=== PATIENT | male | born 1975 | race Caucasian/White ===

== ENCOUNTER 2022-12-07 09:41 | Inpatient (IN) ==
--- NOTE | 2022-12-07 12:00 | XRay Report ---
XR chest 1V not portable CLINICAL HISTORY: illness COMPARISON STUDY: Chest radiograph September 18, 2009. FINDINGS: Lung volumes are normal. Lungs are clear. There is no pneumothorax or pleural effusion. Car diac size is normal. Mediastinal contours are normal. There is no evidence for pulmonary edema. IMPRESSION: No acute cardiopulmonary findings. ACT 112: Negative or not required by law. Electronically signed by: Timmy Guerrero M.D. 12/07/2022 11:58 AM
[2022-12-07 12:08] LABS: Basophils # (auto) 0.05 K/uL (0.00-0.20); Basophils % (auto) 0.3 %; Eosinophils # (auto) 0.02 K/uL (0.00-0.50); Eosinophils % (auto) 0.1 %; Hematocrit (blood only) 35.8 % (42.0-52.0); Hemoglobin 12.1 g/dl (14.0-18.0); Immature Granulocytes # (auto) 0.13 K/uL (0.01-0.20); Immature Granulocytes % (auto) 0.8 %; Lymphocytes # (auto) 1.16 K/uL (1.20-3.40); Mean Corpuscular Hemoglobin 28.5 pg (25.0-34.0); Mean Corpuscular Hgb Conc 33.8 g/dL (32.0-36.0); Mean Corpuscular Volume 84.2 fL (80.0-100.0); Mean Platelet Volume 9.3 fL (9.4-12.4); Monocytes # (auto) 0.95 K/uL (0.11-0.59); Monocytes % (auto) 5.7 %; Neutrophils # (auto) 14.28 K/uL (1.40-6.50); Neutrophils % (auto) 86.1 %; Platelet Count 179 K/uL (130-400); RDW Coefficient of Variation 11.9 % (11.5-14.5); RDW Standard Deviation 36.4 fL (36.4-46.3); Red Blood Count 4.25 M/uL (4.70-6.10); White Blood Count 16.59 K/ul (4.8-10.8)
[2022-12-07 12:21] LABS: Albumin Globulin Ratio 0.9 (0.9-2); Albumin Level 3.9 gm/dl (3.4-5.0); BUN Creatinine Ratio 17.6 (10-20); Bilirubin,Total 0.8 mg/dl (0.2-1.0); C Reactive Protein 20.92 mg/dl (0-0.5); Calcium 9.5 mg/dl (8.6-10.3); Creatinine Clr Calc Pharmacy 114.2 ml/min; Est GFR (African American) 114.3 ml/min; Est GFR (Non-African American) 98.6 ml/min; Globulin 4.4 gm/dl (2.5-4.0); Magnesium 1.9 mg/dl (1.7-2.4); Potassium 4.1 mmol/L (3.5-5.1); Total Protein 8.3 gm/dl (6.0-8.3)
[2022-12-07 12:39] LABS: Procalcitonin 0.25 ng/ml (0-0.5)
[2022-12-07 12:44] LABS: Lyme Ab IgG w/WB Rflx Negative (Negative); Lyme Ab IgM w/WB Rflx Negative (Negative)
[2022-12-07 14:18] LABS: Influenza A virus by PCR Negative (Neg); Influenza B virus by PCR Negative (Neg); RSV by PCR Negative (Neg); SARS CoV2 RNA(COVID-19) Ceph NEGATIVE (Negative)
[2022-12-07] MEDS ORDERED: VANCOMYCIN HCL 1,750 MG in SODIUM CHLORIDE 0.9% 500 ML IV ONE (15:08)
[2022-12-07] MEDS ORDERED: VANCOMYCIN CONSULT ACTIVE PRN ×2 (15:08→18:14)
[2022-12-07] MEDS ORDERED: cefTRIAXone SODIUM 2,000 MG/50 ML BAG IV STA (15:08)
--- NOTE | 2022-12-07 15:11 | Emergency Department Note ---
Impression & Plan Fever of unknown origin ED Provider Note NAME: MARÍA JENKINS AGE: 47 SEX: M : 1975 ARRIVES VIA: Walk-In INFORMANT: Patient, ED PROVIDER(S): Kedar Turcios DO CHIEF COMPLAINT: Fever HPI: The patient is a 47-year-old male who presented to the emergency department for an evaluation of fever. The patient has been noticing fever over the course last 2 weeks. The fever is intermittent. He does take medication for arthritis. He denies having any IV drug abuse but he has a history of this 30 years ago. He has not been seen by his family doctor for the symptoms. He has a history of dental caries. He denies having any rashes. He denies having any chest pain or cough. He denies having any dysuria or frequency. He denies h aving any difficulty breathing. ROS: See above HPI for pertinent positives & negatives. A total of 10 systems reviewed and were otherwise negative. PAST MEDICAL HISTORY: See Below PAST SURGICAL HISTORY: See Below FAMILY HISTORY: See Below SOCIAL HISTORY: See Below HOME MEDICATIONS: See Below ALLERGIES: See Below VITALS: See Below PHYSICAL EXAMINATION: GENERAL: Patient is awake alert in no acute distress patient is resting comfortably and showing no signs of anxiety EYES: The conjunctivae are clear. The pupils are round and reactive. EARS, NOSE, MOUTH AND THROAT: The nose is without any evidence of any deformity. Mucous membranes are moist. Multiple dental caries are noted. NECK: The neck is nontender and supple. RESPIRATORY: Normal respiratory effort is noted there is no evidence of wheezing rhonchi or rales CARDIOVASCULAR: Tachycardic and regular heart sounds were noted to auscultation. There is no definite murmur. GASTROINTESTINAL: The abdomen is soft. Abdomen is nontender. BACK: No midline tenderness or or step-off noted range of motion in flexion extension as well as rotation no signs of muscle spasm noted MUSCULOSKELETAL/EXTREMITIES: There is no evidence of gross deformity full range of motion is noted in the hips and shoulders. SKIN: There is no obvious evidence of any rash. Pedal edema was noted bilaterally. Skin was warm and dry. NEUROLOGIC: Patient is awake alert and oriented x3 MEDICAL DECISION MAKING: The patient is a 47-year-old male who presented to the emergency department for fever. The patient's had fever over the course of the last 2 weeks. The patient had no definite source for his infection. I discussed the patient's laboratory and radiographic studies with him. He was treated with IV fluids and IV antibiotics for presumed bacteremia. Given the patient's history this could be an infection with a dental origin. I discussed the patient's laboratory and radiographic studies with the on-call [facility] hospitalist. They have agreed to evaluate the patient in the emergency department for further management and disposition. Triage Nursing notes reviewed. Prior medical records reviewed Vital Signs: reviewed and remarkable for no significant abnormalities Differential diagnosis: Viral syndrome, otitis, pharyngitis, pneumonia, influenza, meningitis, urinary tract infection, sepsis, bacteremia, as well as other pathologies. ER treatment provided: See below Diagnostics interpreted by me: ECG: EKG was obtained in the emergency department. My interpretation is sinus tachycardia at 126 bpm. There is no ectopy. Right bundle branch block pattern was noted. This was compared to a tracing from September 18, 2009. No changes were noted. Cardiac Monitoring: An order was placed for continuous cardiac monitoring. The monitor shows a rate of 78 bpm with sinus rhythm. Laboratory studies: As stated above and show below. Imaging studies: See below. Radiographic imaging was reviewed by myself Consultation(s): I discussed this case with Dr. Kimball who was on-call for the [facility] hospitalist group. Past Med/Surg History Medical History Undescended left testicle Undescended testicle, unspecified Surgical History No significant past surgical history Family History Father Myocardial infarction, Onset Age: 53 Diabetes Denies family history of Ovarian cancer Prostate cancer Breast cancer Colorectal cancer Social History Smoking Status: Current every day smoker Tobacco Type: E-cigarettes / Vaping Age Started Using Tobacco: 14; packs per day: 1; Cigarettes Per Day: 20; Second Hand Exposure: Yes; Do You Dip or Chew Tobacco: No; Hx Alcohol Use: Yes Alcohol type: beer Alcohol Intake Frequency: Monthly or Less Hx Substance Use: No Preferred Language: Sami Communication Ability: Effective Visual Impairment: No Limitations Hearing Ability: Normal Programming Manager Required: No marital status: Single Current Living Situation: Alone current occupational status: employed 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 How many Children do You have: 1 Feels Safe at Home: Yes Childhood Exposure to Second-Hand Smoke: Yes Diet: regular caffeine: Yes during the past year weight has: remained stable Dental Care, Regularly: No Physical Activity Frequency: Does not Exercise Seatbelt Use: always Sunscreen Use: Yes Assistive Devices: Glasses Allergies Allergies Allergy/AdvReac Type Severity Reaction Status Date / Time No Known Allergies Allergy Verified 11/22/22 09:30 Home Meds Home Medications Medication Instructions Recorded Confirmed acetaminophen 500 mg tablet 500 mg PO Q6H PRN Pain 11/16/22 12/07/22 buprenorphine 8 mg-naloxone 2 mg 0.5 tab sublingual AMPM 11/16/22 12/07/22 sublingual tablet Centrum Men 1 tab PO DAILY 12/07/22 12/07/22 Previous Rx's Medication Instructions Recorded meloxicam 15 mg tablet 7.5 mg PO BID PRN pain #30 tabs 11/22/22 Results & Data (ED) Vital Signs Vital Signs - 24 hr 12/07/22 09:44 12/07/22 14:23 12/07/22 14:23 Temperature 37.0 C Temperature Source Temporal Artery Scan Pulse Rate 116 H 83 83 Pulse Rate [Right Finger] Respiratory Rate 20 20 Respiratory Effort / Characteristics Non-Labored Respiratory Depth Normal Blood Pressure 119/71 146/80 H Blood Pressure [Right Arm] Blood Pressure Mean 87 102 Blood Pressure Mean [Right Arm] Pulse Oximetry 96 95 Oxygen Delivery Method Room Air Sepsis Recent Fever Within 48 Hours No Sepsis New/Unexplained Change in Mental Status N/A Sepsis Action Taken by Nursing No Action Required 12/07/22 15:28 12/07/22 15:00 12/07/22 15:30 Temperature Temperature Source Pulse Rate 94 H 94 H Pulse Rate [Right Finger] 91 H Respiratory Rate 12 17 17 Respiratory Effort / Characteristics Non-Labored Spontaneous Respiratory Depth Normal Blood Pressure 147/81 H 122/78 Blood Pressure [Right Arm] 142/71 H Blood Pressure Mean 103 92 Blood Pressure Mean [Right Arm] 94 Pulse Oximetry 99 98 99 Oxygen Delivery Method Room Air Room Air Room Air Sepsis Recent Fever Within 48 Hours Sepsis New/Unexplained Change in Mental Status Sepsis Action Taken by Nursing 12/07/22 16:30 Temperature Temperature Source Pulse Rate 80 Pulse Rate [Right Finger] Respiratory Rate 15 Respiratory Effort / Characteristics Respiratory Depth Blood Pressure 115/82 Blood Pressure [Right Arm] Blood Pressure Mean 93 Blood Pressure Mean [Right Arm] Pulse Oximetry 97 Oxygen Delivery Method Room Air Sepsis Recent Fever Within 48 Hours Sepsis New/Unexplained Change in Mental Status Sepsis Action Taken by Assisted Medications Current Medication List: was personally reviewed by me Laboratory Data Attestation: I reviewed the patient's lab results. 12/07/22 11:35 12/07/22 11:35 Lab Results 12/07/22 12/07/22 12/07/22 Range/Units 11:35 11:35 11:35 WBC 16.59 H (4.8-10.8) K/ul RBC 4.25 L (4.70-6.10) M/uL Hgb 12.1 L (14.0-18.0) g/dl Hct 35.8 L (42.0-52.0) % MCV 84.2 (80.0-100.0) fL MCH 28.5 (25.0-34.0) pg MCHC 33.8 (32.0-36.0) g/dL RDW Std Deviation 36.4 (36.4-46.3) fL RDW Coeff of Diamond 11.9 (11.5-14.5) % Plt Count 179 (130-400) K/uL MPV 9.3 L (9.4-12.4) fL Immature Gran % (Auto) 0.8 % Neut % (Auto) 86.1 % Lymph % (Auto) 7.0 % Lander % (Auto) 5.7 % Eos % (Auto) 0.1 % Baso % (Auto) 0.3 % Neut # (Auto) 14.28 H (1.40-6.50) K/uL Lymph # (Auto) 1.16 L (1.20-3.40) K/uL Lander # (Auto) 0.95 H (0.11-0.59) K/uL Eos # (Auto) 0.02 (0.00-0.50) K/uL Baso # (Auto) 0.05 (0.00-0.20) K/uL Immature Gran # (Auto) 0.13 (0.01-0.20) K/uL ESR (0-15) mm/hr Sodium 127 L (136-145) mmol/L Potassium 4.1 (3.5-5.1) mmol/L Chloride 91 L (98-107) mmol/L Carbon Dioxide 26 (21-32) mmol/L Anion Gap 10 (3-11) BUN 16 (6-23) mg/dl Creatinine 0.91 (0.6-1.4) mg/dl Est Cr Clr Drug Dosing 114.2 ml/min Est GFR ( Amer) 114.3 ml/min Est GFR (Non-Af Amer) 98.6 ml/min BUN/Creatinine Ratio 17.6 (10-20) Glucose 120 H (70-99(Fasting)) mg/dl Lactate (0.4-2.0) mmol/L Calcium 9.5 (8.6-10.3) mg/dl Magnesium 1.9 (1.7-2.4) mg/dl Total Bilirubin 0.8 (0.2-1.0) mg/dl AST 28 (13-39) U/L ALT 28 (7-52) U/L Alkaline Phosphatase 164 H (34-104) U/L C-Reactive Protein 20.92 H (0-0.5) mg/dl Total Protein 8.3 (6.0-8.3) gm/dl Albumin 3.9 (3.4-5.0) gm/dl Globulin 4.4 H (2.5-4.0) gm/dl Albumin/Globulin Ratio 0.9 (0.9-2) Procalcitonin 0.25 (0-0.5) ng/ml Anaplasma Smear Babesia Smear Lyme Disease IgG Ab Negative (Negative) Lyme Disease IgM Ab Negative (Negative) SARS-CoV-2 (PCR) (Negative) Influenza Type A (PCR) (Neg) Influenza Type B (PCR) (Neg) RSV (RT-PCR) (Neg) 12/07/22 12/07/22 12/07/22 Range/Units 11:35 11:35 11:42 WBC (4.8-10.8) K/ul RBC (4.70-6.10) M/uL Hgb (14.0-18.0) g/dl Hct (42.0-52.0) % MCV (80.0-100.0) fL MCH (25.0-34.0) pg MCHC (32.0-36.0) g/dL RDW Std Deviation (36.4-46.3) fL RDW Coeff of Diamond (11.5-14.5) % Plt Count (130-400) K/uL MPV (9.4-12.4) fL Immature Gran % (Auto) % Neut % (Auto) % Lymph % (Auto) % Lander % (Auto) % Eos % (Auto) % Baso % (Auto) % Neut # (Auto) (1.40-6.50) K/uL Lymph # (Auto) (1.20-3.40) K/uL Lander # (Auto) (0.11-0.59) K/uL Eos # (Auto) (0.00-0.50) K/uL Baso # (Auto) (0.00-0.20) K/uL Immature Gran # (Auto) (0.01-0.20) K/uL ESR 91 H (0-15) mm/hr Sodium (136-145) mmol/L Potassium (3.5-5.1) mmol/L Chloride (98-107) mmol/L Carbon Dioxide (21-32) mmol/L Anion Gap (3-11) BUN (6-23) mg/dl Creatinine (0.6-1.4) mg/dl Est Cr Clr Drug Dosing ml/min Est GFR ( Amer) ml/min Est GFR (Non-Af Amer) ml/min BUN/Creatinine Ratio (10-20) Glucose (70-99(Fasting)) mg/dl Lactate 1.7 (0.4-2.0) mmol/L Calcium (8.6-10.3) mg/dl Magnesium (1.7-2.4) mg/dl Total Bilirubin (0.2-1.0) mg/dl AST (13-39) U/L ALT (7-52) U/L Alkaline Phosphatase (34-104) U/L C-Reactive Protein (0-0.5) mg/dl Total Protein (6.0-8.3) gm/dl Albumin (3.4-5.0) gm/dl Globulin (2.5-4.0) gm/dl Albumin/Globulin Ratio (0.9-2) Procalcitonin (0-0.5) ng/ml Anaplasma Smear See Comment Babesia Smear See Comment Lyme Disease IgG Ab (Negative) Lyme Disease IgM Ab (Negative) SARS-CoV-2 (PCR) (Negative) Influenza Type A (PCR) (Neg) Influenza Type B (PCR) (Neg) RSV (RT-PCR) (Neg) 12/07/22 Range/Units 11:58 WBC (4.8-10.8) K/ul RBC (4.70-6.10) M/uL Hgb (14.0-18.0) g/dl Hct (42.0-52.0) % MCV (80.0-100.0) fL MCH (25.0-34.0) pg MCHC (32.0-36.0) g/dL RDW Std Deviation (36.4-46.3) fL RDW Coeff of Diamond (11.5-14.5) % Plt Count (130-400) K/uL MPV (9.4-12.4) fL Immature Gran % (Auto) % Neut % (Auto) % Lymph % (Auto) % Lander % (Auto) % Eos % (Auto) % Baso % (Auto) % Neut # (Auto) (1.40-6.50) K/uL Lymph # (Auto) (1.20-3.40) K/uL Lander # (Auto) (0.11-0.59) K/uL Eos # (Auto) (0.00-0.50) K/uL Baso # (Auto) (0.00-0.20) K/uL Immature Gran # (Auto) (0.01-0.20) K/uL ESR (0-15) mm/hr Sodium (136-145) mmol/L Potassium (3.5-5.1) mmol/L Chloride (98-107) mmol/L Carbon Dioxide (21-32) mmol/L Anion Gap (3-11) BUN (6-23) mg/dl Creatinine (0.6-1.4) mg/dl Est Cr Clr Drug Dosing ml/min Est GFR ( Amer) ml/min Est GFR (Non-Af Amer) ml/min BUN/Creatinine Ratio (10-20) Glucose (70-99(Fasting)) mg/dl Lactate (0.4-2.0) mmol/L Calcium (8.6-10.3) mg/dl Magnesium (1.7-2.4) mg/dl Total Bilirubin (0.2-1.0) mg/dl AST (13-39) U/L ALT (7-52) U/L Alkaline Phosphatase (34-104) U/L C-Reactive Protein (0-0.5) mg/dl Total Protein (6.0-8.3) gm/dl Albumin (3.4-5.0) gm/dl Globulin (2.5-4.0) gm/dl Albumin/Globulin Ratio (0.9-2) Procalcitonin (0-0.5) ng/ml Anaplasma Smear Babesia Smear Lyme Disease IgG Ab (Negative) Lyme Disease IgM Ab (Negative) SARS-CoV-2 (PCR) NEGATIVE (Negative) Influenza Type A (PCR) Negative (Neg) Influenza Type B (PCR) Negative (Neg) RSV (RT-PCR) Negative (Neg) Administered Medications Discontinued Medications Ceftriaxone Sodium (Rocephin) 2,000 mg in 50 mls @ 100 mls/hr IV NOW STA Stop: 12/07/22 15:37 Last Infusion: 12/07/22 15:57 Dose: 0 mls/hr Documented By: Admin: 12/07/22 15:28 Dose: 100 mls/hr Documented By: ASW Vancomycin HCl 1,750 mg/ (Sodium Chloride) 535 mls @ 200 mls/hr IV NOW ONE Stop: 12/07/22 17:48 Last Admin: 12/07/22 15:57 Dose: 200 mls/hr Documented By: ASW Imaging Data Attestation: I personally reviewed and interpreted this imaging study as follows: My Impression: 1 view chest x-ray was obtained in the emergency department. My interpretation is no free air or definite infiltrate, final report below. Radiologist's Impression: Chest X-Ray 12/07/22 09:55 XR chest 1V not portable CLINICAL HISTORY: illness COMPARISON STUDY: Chest radiograph September 18, 2009. FINDINGS: Lung volumes are normal. Lungs are clear. There is no pneumothorax or pleural effusion. Cardiac size is normal. Mediastinal contours are normal. There is no evidence for pulmonary edema. IMPRESSION: No acute cardiopulmonary findings. ACT 112: Negative or not required by law. Electronically signed by: Timmy Guerrero M.D. 12/07/2022 11:58 AM Discharge Plan Visit Data Chief Complaint: Illness Stated Complaint: FEVER,CANT WALK/EAT,WEAKNESS ED Provider: Kedar Turcios Discharge Problem: Fever of unknown origin Patient Disposition: Being Evaluated by Hospitalist Discharge Instructions Interventions: ED Discharge Assessment Last Done: 12/07/22 18:14
--- NOTE | 2022-12-07 15:42 | History & Physical Report ---
Date of Service December 07, 2022 Assessment & Plan (1) Fever: Plan: Fever, leukocytosis, elevated inflammatory markers of unknown origin Patient with 1 month of intermittent fevers and sweats. Has had some intermittent right lumbar pain, right foot pain, and a right hernia all of which feel improved to him at time of admitting assessment. He denies respiratory and GI symptoms Has a history of IV drug abuse in remission for 30 years, following this he did use unprescribed Suboxone and is recently on prescription Suboxone for the last 6 months. Did not use Suboxone via an IV injection route, and affirms that he has not used any recreational IV venipuncture in several decades Some minimal R paraspinal lumbar TTP. Patient has persistent fevers/night sweats, CRP of 20, ESR of 91, and an elevated alk phos all suspicious for occult bony infection in the setting of recreational drug abuse hx. Will obtain MRI- C/T/L spine Patient without jaw swelling or dental pain, if above negative can f/u with CT-face + contrast, clinically no signs of soft tissue infection on exam. BC pending Patient denies tick exposures, initial Lyme and Anaplasma testing is negative. He does not have a transaminitis. No abdominal pain (2) History of intravenous drug abuse: Plan: Suboxone 8 milligram 1/2 tablet a.m./p.m. home dosing continued (3) Pain of right heel: Plan: No pain on admitting exam, no overlying lesions of the heel Plan DVT prophylaxis: Heparin Disposition: Medical/surgical CODE STATUS: Full code Diet: N.p.o. pending MRI results, if no abscesses requiring emergent surgical intervention are identified then can progress to a regular History of Present Illness Primary Care Provider: Kenneth Santiago, III, [employer] Mr. 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 Pt reprots 1 month of fevers, night sweats, and feeling tired. Denies respiratory symptoms, diarrhea/abdominal pain, skin infection, skin lesions. Notes R foot has been achy 'but not too bad. 03/24 currently, can't relaly tell you when it started' Is not able to quantify when foot last felt normal on a days, weeks, months, or years scale and does not have any pain at bedside exam. R groin started to hurt 1 month ago. Initially got a little better, and noted a hernia was found on workup. This has felt 'ok' with no pain at rest and minimal pain when he pressure on it. Pt notes initially thought he had a blood clot but CTA did not show evidence of this. Low back pain after pulling a muscle in low R back 'so painful I can't walk'. This was 2 months ago, and got better but then recurred 1 month ago then went away after a week. Feels 'ok' at rest today and does n ot hurt at time of HPI, Endorses he takes Suboxone 0.5 8mg pill in AM and PM (1 pill, 8mg TDD). Has been on Suboxone for 6 months, previously used street/noneprescription suboxone. Denies IVDU in last 30 years. Denies chest pain/chest pressure. No SoB/dyspnea/cough. No tick bites or rashes. Medical History: Reviewed Medications: Reviewed Surgical History: Reviewed Family history: Reviewed Allergies: Reviewed Social History: Vapes. Would like nicotine patch. Rare social etoh. Denies MM/RM use. Denies recent IVDU. Code Status: Full Allergies Allergy/AdvReac Type Severity Reaction Status Date / Time No Known Allergies Allergy Verified 11/22/22 09:30 Home Medications Medication Instructions Recorded Confirmed Type acetaminophen 500 mg tablet 500 mg PO Q6H PRN Pain 11/16/22 12/07/22 History buprenorphine 8 mg-naloxone 2 mg 0.5 tab sublingual AMPM 11/16/22 12/07/22 History sublingual tablet meloxicam 15 mg tablet 7.5 mg PO BID PRN pain #30 tabs 11/22/22 12/07/22 Rx Centrum Men 1 tab PO DAILY 12/07/22 12/07/22 History Past Med/Surg History Medical History Undescended left testicle Undescended testicle, unspecified Surgical History No significant past surgical history Family History Father Myocardial infarction, Onset Age: 53 Diabetes Denies family history of Ovarian cancer Prostate cancer Breast cancer Colorectal cancer Social History Smoking Status: Current every day smoker Tobacco Type: E-cigarettes / Vaping Age Started Using Tobacco: 14; packs per day: 1; Cigarettes Per Day: 20; Second Hand Exposure: Yes; Do You Dip or Chew Tobacco: No; Hx Alcohol Use: Yes Alcohol type: beer Alcohol Intake Frequency: Monthly or Less Hx Substance Use: No Preferred Language: Bolivian Communication Ability: Effective Visual Impairment: No Limitations Hearing Ability: Normal Global Marketing Operations Manager Required: No marital status: Single Current Living Situation: Alone current occupational status: employed 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 NAD. Cooperative. HEENT: Atraumatic, normocephalic. Poor dentition. No obvious facial swelling. No drainage or erythema of the gumline. Vision/hearing intact. Pupils equal and reactive to light Pulm: CTAB A&P. -wheezes, -rales, -rhonchi. Symmetrical chest rise. No increased work of breathing. No respiratory distress. Cardiac: RRR, -mrg. Radial pulses intact and symmetrical. Abdominal: Nontender, nondistended, soft. BS present. Spine: No midline or paraspinal tenderness at cervical or thoracic spine. Patient has trace right-sided tenderness to palpation at the right L2-L4 paraspinal region without midline tenderness. : Minimal right pubic tenderness at site of prior femoral hernia, no warmth/erythema/bulge. Extremities: Warm, dry. No erythema of the extremities. No open wounds. No purulent wounds. Right and left ankles with 1+ edema but without tenderness and no pain on ankle dorsiflexion/plantarflexion. Sensation to soft touch intact in hands and feet, family assessment worker strength, hip flexion, ankle dorsiflexion/plantarflexion are intact. No saddle anesthesia Results & Data Results & Data Vital Signs (Past 12 Hours) Vital Signs Temp Pulse Pulse Resp BP BP Pulse Ox 12/07/22 15:28 91 H 12 142/71 H 99 12/07/22 14:23 83 20 146/80 H 95 12/07/22 14:23 83 12/07/22 09:44 37.0 C 116 H 20 119/71 96 O2 Del Method 12/07/22 15:28 Room Air 12/07/22 14:23 Room Air 12/07/22 14:23 12/07/22 09:44 PG Care Time/CCT Total # of Minutes Spent Total Time Spent with Patient: Total time spent is greater than 50% in coordination of care (as documented) at patient's floor/unit and/or counseling patient: Coding Level of Care Code 06846 INT INP/OBS CARE 3/75MIN Diagnoses Fever R50.9 History of intravenous drug abuse F19.11 Pain of right heel M79.671
[2022-12-07] MEDS ORDERED: ACETAMINOPHEN 500 MG TAB PO PRN (18:14)
[2022-12-07] MEDS ORDERED: ACETAMINOPHEN 325 MG TAB PO PRN (18:14)
[2022-12-07 19:11] LABS: Appearance Urine Clear (Clear); Bacteria Urine Automated Negative (Negative); Bilirubin Urine Negative (Negative); Blood Urine 2+ (Negative); Color Urine Dark Yellow; Epithelial Cell Urine Auto 0-5 /lpf (0-5); Glucose Urine UA Negative (Negative); Ketones Urine 1+ (Negative); Leukocyte Esterase Urine Negative (Negative); Nitrite Urine Negative (Negative); Protein Urine Trace (Negative); RBC Urine Automated 0-4 /hpf (0-4); Specific Gravity Urine 1.014 (1.000-1.030); Urobilinogen Urine Negative (Negative); pH Urine 5.5 (4.5-7.5)
[2022-12-07 19:40] LABS: Amphetamines+Metham, Urine Neg (Neg); Barbiturates, Urine Neg (Neg); Benzodiazepine, Urine Neg (Neg); Cocaine, Urine Neg (Neg); MDMA (Ecstacy), Urine Neg (Neg); Methadone, Urine Neg (Neg); Opiate, Urine Neg (Neg); Phencyclidine, Urine Neg (Neg)
[2022-12-07] MEDS ORDERED: VANCOMYCIN HCL 1,250 MG in SODIUM CHLORIDE 0.9% 250 ML IV SCH (22:00)
--- NOTE | 2022-12-07 22:24 | Magnetic Resonance Report ---
Exam(s): MRI T SPINE Without Contrast EXAM: MR Thoracic Spine Without Intravenous Contrast CLINICAL HISTORY: Reason for exam: r/o vertebral abscess/discitis/osteo. TECHNIQUE: Magnetic resonance images of the thoracic spine without intravenous contrast in multiple planes. COMPARISON: None. FINDINGS: Vertebrae: Unremarkable. No acute fracture. No abnormal signal to suggest bone marrow edema or infectious process. Discs/spinal canal/neural foramina: Multilevel disc desiccation and loss of the left mid lower thoracic spine with mild narrowing of disc height. No focal disc herniation. Irregularity or abnormal signal to suggest discitis. No spinal canal stenosis. No significant neural foraminal encroachment. Spinal cord: Unremarkable. Normal signal. Soft tissues: Unremarkable. IMPRESSION: Multilevel spondylosis/disc degenerative disease with no acute fracture or subluxation. No bony lesion. No signs of discitis or osteomyelitis. Normal spinal cord. No central canal stenosis or neuroforaminal encroachment. Electronically signed by: Varsha Watts MD 12/07/22 22:23 PM
--- NOTE | 2022-12-07 22:41 | Magnetic Resonance Report ---
Exam(s): MRI C SPINE EXAM: MR Cervical Spine Without Intravenous Contrast CLINICAL HISTORY: Reason for exam: r/o vertebral abscess/discitis/osteo. TECHNIQUE: Magnetic resonance images of the cervical spine without intravenous contrast in multiple planes. COMPARISON: None. FINDINGS: Vertebrae: Unremarkable. Normal vertebral bodies with no evidence of edema or acute fracture. Multilevel disc desiccation throughout the cervical spine with mild narrowing of disc height, more severe C6-C7. No abnormal signal to suggest discitis. Spinal cord: Unremarkable. Normal signal. Soft tissues: Unremarkable. No soft tissue abnormality to suggest inflammatory process, abscess or mass. DISCS/SPINAL CANAL/NEURAL FORAMINA: C2-C3: Mild disc desiccation. No disc bulge or herniation. No stenosis. C3-C4: Disc desiccation. Mild disc osteophyte complex. No stenosis. No significant neuroforaminal encroachment. C4-C5: Mild disc desiccation. No focal disc bulge or herniation. No stenosis. No significant neural encroachment. C5-C6: Mild disc desiccation. No focal disc bulge or herniation. No stenosis. No significant neural encroachment. C6-C7: Disc desiccation. Mild disc osteophyte complex. No stenosis. No significant neuroforaminal encroachment. C7-T1: Unremarkable. No significant disc disease. No stenosis. IMPRESSION: Multilevel disc desiccation with no evidence of acute fracture or subluxation. No central canal stenosis or neuroforaminal encroachment pain No soft tissue abscess. No discitis or osteomyelitis. Electronically signed by: Varsha Watts MD 12/07/22 22:40 PM
--- NOTE | 2022-12-07 23:28 | Magnetic Resonance Report ---
Exam(s): MRI L SPINE Without Contrast EXAM: MR Lumbar Spine Without Intravenous Contrast CLINICAL HISTORY: Reason for exam: r/o vertebral abscess/discitis/osteo. TECHNIQUE: Magnetic resonance images of the lumbar spine without intravenous contrast in multiple planes. COMPARISON: None. FINDINGS: Vertebrae: Normal signal of the vertebral bodies. No acute fracture. Spinal cord: The spinal cord terminates at the proximal T12-L1 level with normal signal in the visualized portion pain. Soft tissues: Unremarkable. DISCS/SPINAL CANAL/NEURAL FORAMINA: L1-L2: Unremarkable. No significant disc disease. No stenosis. L2-L3: Unremarkable. No significant disc disease. No stenosis. L3-L4: Unremarkable. No significant disc disease. No stenosis. L4-L5: There is disc desiccation at L4-L5. No focal disc bulge or herniation seen. No stenosis. L5-S1: There is narrowing of disc height at L5-S1 with disc desiccation and endplate spondylosis. There is mild broad-based central disc bulge. No spinal stenosis. No neuroforaminal encroachment. IMPRESSION: Mild broad-based disc bulge at L5-S1. No acute fracture, subluxation or bony lesion. No soft tissue abnormality to suggest abscess or mass. No signs of discitis. Electronically signed by: Varsha Watts MD 12/07/22 23:27 PM
[2022-12-07] MEDS: BUPRENORPHINE/NALOXONE 8/2 MG TAB SL SCH (23:41)
[2022-12-08 03:24] LABS: A calco-baum cmplx NotReported Not Detected (NotDetected); Bact fragilis Not Reported Not Detected (NotDetected); C auris Not Reported Not Detected (NotDetected); Calbicans Not Reported Not Detected (NotDetected); Candida glabrata Not Reported Not Detected (NotDetected); Candida krusei Not Reported Not Detected (NotDetected); Cneoformans/gatti Not Reported Not Detected (NotDetected); Cparapsilosis Not Reported Not Detected (NotDetected); E cloacae compx Not Reported Not Detected (NotDetected); Efaecalis Not Reported Not Detected (NotDetected); Efaecium Not Reported Not Detected (NotDetected); Enterobacterales Not Reported Not Detected (NotDetected); Escherichia coli Not Reported Not Detected (NotDetected); H influenzae Not Reported Not Detected (NotDetected); K aerogenes Not Reported Not Detected (NotDetected); Koxytoca Not Reported Not Detected (NotDetected); Kpneumoniae grp Not Reported Not Detected (NotDetected); Lmonocyt Not Reported Not Detected (NotDetected); N meningitidis Not Reported Not Detected (NotDetected); P aeruginosa Not Reported Not Detected (NotDetected); Proteus spp Not Reported Not Detected (NotDetected); Salmonella spp Not Reported Not Detected (NotDetected); Smarcescens Not Reported Not Detected (NotDetected); Staph lugdunensis Not Reported Not Detected (NotDetected); Staph spp. Not Reported Not Detected (NotDetected); Staphaureus Not Reported Not Detected (NotDetected); Staphepi Not Reported Not Detected (NotDetected); Stenmaltophilia Not Reported Not Detected (NotDetected); Strep agal(GrpB) Not Reported Not Detected (NotDetected); Strep pneum Not Reported Not Detected (NotDetected); Strep pyog (GrpA) Not Reported Not Detected (NotDetected); Strep spp Not Reported DETECTED (NotDetected)
[2022-12-08 04:41] LABS: Streptococcus spp DETECTED (NotDetected)
[2022-12-08 07:50] LABS: Basophils # (auto) 0.04 K/uL (0.00-0.20); Basophils % (auto) 0.4 %; Eosinophils # (auto) 0.16 K/uL (0.00-0.50); Eosinophils % (auto) 1.7 %; Hematocrit (blood only) 31.3 % (42.0-52.0); Hemoglobin 10.9 g/dl (14.0-18.0); Immature Granulocytes # (auto) 0.06 K/uL (0.01-0.20); Immature Granulocytes % (auto) 0.6 %; Lymphocytes # (auto) 1.35 K/uL (1.20-3.40); Lymphocytes % (auto) 14.6 %; Mean Corpuscular Hemoglobin 28.5 pg (25.0-34.0); Mean Corpuscular Hgb Conc 34.8 g/dL (32.0-36.0); Mean Corpuscular Volume 81.7 fL (80.0-100.0); Mean Platelet Volume 9.2 fL (9.4-12.4); Monocytes # (auto) 0.87 K/uL (0.11-0.59); Monocytes % (auto) 9.4 %; Neutrophils # (auto) 6.79 K/uL (1.40-6.50); Neutrophils % (auto) 73.3 %; Platelet Count 177 K/uL (130-400); RDW Coefficient of Variation 11.9 % (11.5-14.5); RDW Standard Deviation 35.6 fL (36.4-46.3); Red Blood Count 3.83 M/uL (4.70-6.10); White Blood Count 9.27 K/ul (4.8-10.8)
[2022-12-08 08:11] LABS: BUN Creatinine Ratio 22.2 (10-20); Calcium 9.1 mg/dl (8.6-10.3); Creatinine Clr Calc Pharmacy 164.9 ml/min; Est GFR (African American) 134.1 ml/min; Est GFR (Non-African American) 115.7 ml/min; Potassium 3.9 mmol/L (3.5-5.1)
[2022-12-08] MEDS: BUPRENORPHINE/NALOXONE 8/2 MG TAB SL SCH ×2 (09:13→20:28)
[2022-12-08] MEDS: HEPARIN SOD 5,000 UNIT/0.5 ML VIAL SQ SCH ×3 (09:14→20:15)
[2022-12-08] MEDS: cefTRIAXone SODIUM 2,000 MG in DEXTROSE 5 % MINI-B 50 ML IV SCH (15:11)
--- NOTE | 2022-12-08 18:47 | XCELERA ---
[id number]
--- NOTE | 2022-12-08 21:11 | Electrocardiogram Report ---
Test Reason : Blood Pressure : / mmHG Vent. Rate : 126 BPM Atrial Rate : 126 BPM P-R Int : 152 ms QRS Dur : 132 ms QT Int : 324 ms P-R-T Axes : 076 115 050 degrees QTc Int : 469 ms Sinus tachycardia Possible Left atrial enlargement Right bundle branch block Cannot rule out Septal infarct , age undetermined Abnormal ECG When compared with ECG of 18-SEP-2009 16:09, Questionable change in QRS duration Septal infarct is now Present Confirmed by Cesar Chavez ([id number]) on 12/08/2022 9:11:36 PM Referred By: Confirmed By:Cesar Chavez
--- NOTE | 2022-12-08 22:16 | Hospitalist Progress Note ---
Date of Service December 08, 2022 Assessment & Plan (1) Streptococcal bacteremia: Plan: 4/ blood cultures positive for such. Echo returned with AV vegetation. Did he seed the blood from poor dentition (has multiple cracked molars, etc)? Did he seed from the skin? Was there IV drug use in the recent past? (he denies such) Repeat blood cultures today. Will need daily cultures until they are negative/sterile. Can stop vancomycin, continue IV rocephin. (2) Aortic valve endocarditis: Plan: Large AV vegetation seen on echo today. Will involve cardiology as he will need to be followed carefully over time with serial echos, etc. Fortunately no acute CHF. Other than the petechial lesions seen on his shins I don't see other embolic phenomenon at this time although he needs w/u for the R groin pain (see below). (3) Septicemia: Plan: 2nd to strep as above (4) Right groin pain: Plan: Has a small right inguinal hernia but this is unlikely the cause of his pain. On CT pelvis done earlier this month it showed "Sclerotic change is noted in the pubic symphysis." Could this represent osteomyelitis, especially in light of elevated alk phos level?? Consider Pelvic MRI with contrast to rule out such. (5) History of intravenous drug abuse: Plan: Patient denied such at time of admission. Cont Suboxone 8/2mg -- 0.5 tablet BID. Prescribed by local mri specialist. (6) Pain of right heel: Plan: None on examination today. Could not reproduce any pain. Radicular pain from L5-S1 herniated disc?? Follow carefully. Plan DVT proph - heparin 5000 TID Admission and Anticipated Discharge Date Admission Date: December 07, 2022 Subjective patient reports that he is simply feeling very poorly fatigued, weak, poor appetite R groin pain still present but not as bad as 3-4 weeks ago R foot pain improved having chills/fevers no recent dental work no recent skin problems, cuts/ulcers/wounds, etc denies any back pain for me this am Review of Systems Review of Systems: gen - fevers, chills, poor appetite, fatigue, weak cv - no chest pain pulm - no dyspnea GI - no abd pain, no N/V neuro - denies paresthesias of right leg despite recent R foot pain Physical Exam Physical Exam: gen - looks ill but nontoxic, NAD, weak-appearing mouth - MMM, poor dentition neck - no JVD heart - RRR, s1 s2, 1-2/6 systolic murmur LLSB with some radiation to L axillae lungs - CTA b/l back - no tenderness to palpation over c-spine, t-spine or l-spine abd - soft NT ND BS+; no HSM ext - no ankle edema, pulses 2+ b/l skin - petechiae present on b/l shins and dorsum of feet; no [place] lesions (palms, soles are clean); no splinter hemorrhages of fingernails musculo - with passive ROM of both hips I could not elicit any pain or tenderness; R foot/ankle - no tenderness to palpation or with passive ROM Results & Data Results & Data Vital Signs (Past 12 Hours) Vital Signs Temp Pulse Resp BP Pulse Ox O2 Del Method 12/08/22 21:49 37.2 C 79 18 110/66 100 Room Air 12/08/22 14:40 37.2 C 86 18 117/64 99 Room Air 12/08/22 11:56 Room Air Laboratory Results Laboratory Results - last 48 hr 12/07/22 12/07/22 12/07/22 11:35 11:35 11:35 WBC 16.59 H RBC 4.25 L Hgb 12.1 L Hct 35.8 L MCV 84.2 MCH 28.5 MCHC 33.8 RDW Std Deviation 36.4 RDW Coeff of Diamond 11.9 Plt Count 179 MPV 9.3 L Immature Gran % (Auto) 0.8 Neut % (Auto) 86.1 Lymph % (Auto) 7.0 [place] % (Auto) 5.7 Eos % (Auto) 0.1 Baso % (Auto) 0.3 Neut # (Auto) 14.28 H Lymph # (Auto) 1.16 L [place] # (Auto) 0.95 H Eos # (Auto) 0.02 Baso # (Auto) 0.05 Immature Gran # (Auto) 0.13 ESR Sodium 127 L Potassium 4.1 Chloride 91 L Carbon Dioxide 26 Anion Gap 10 BUN 16 Creatinine 0.91 Est Cr Clr Drug Dosing 114.2 Est GFR ( Amer) 114.3 Est GFR (Non-Af Amer) 98.6 BUN/Creatinine Ratio 17.6 Glucose 120 H Lactate Calcium 9.5 Magnesium 1.9 Total Bilirubin 0.8 AST 28 ALT 28 Alkaline Phosphatase 164 H C-Reactive Protein 20.92 H Total Protein 8.3 Albumin 3.9 Globulin 4.4 H Albumin/Globulin Ratio 0.9 Procalcitonin 0.25 Urine Color Urine Appearance Urine pH Ur Specific Pearl Urine Protein Urine Glucose (UA) Urine Ketones Urine Blood Urine Nitrite Urine Bilirubin Urine Urobilinogen Ur Leukocyte Esterase Urine WBC (Auto) Urine RBC (Auto) U Hyaline Cast (Auto) U Epithel Cells (Auto) Urine Bacteria (Auto) Urine Opiates Screen Ur Methadone, Qual Urine Barbiturates Ur Phencyclidine (PCP) U Amphetamin/Meth Scrn MDMA (Ecstasy) Screen U Benzodiazepines Scrn Ur Cocaine Metabolite U Marijuana (THC) Screen Anaplasma Smear Babesia Smear Lyme Disease IgG Ab Negative Lyme Disease IgM Ab Negative SARS-CoV-2 (PCR) Influenza Type A (PCR) Influenza Type B (PCR) RSV (RT-PCR) Streptococcus sp PCR Bld Cult ID Panel PCR 12/07/22 12/07/22 12/07/22 11:35 11:35 11:35 WBC RBC Hgb Hct MCV MCH MCHC RDW Std Deviation RDW Coeff of Diamond Plt Count MPV Immature Gran % (Auto) Neut % (Auto) Lymph % (Auto) [place] % (Auto) Eos % (Auto) Baso % (Auto) Neut # (Auto) Lymph # (Auto) [place] # (Auto) Eos # (Auto) Baso # (Auto) Immature Gran # (Auto) ESR 91 H Sodium Potassium Chloride Carbon Dioxide Anion Gap BUN Creatinine Est Cr Clr Drug Dosing Est GFR ( Amer) Est GFR (Non-Af Amer) BUN/Creatinine Ratio Glucose Lactate Calcium Magnesium Total Bilirubin AST ALT Alkaline Phosphatase C-Reactive Protein Total Protein Albumin Globulin Albumin/Globulin Ratio Procalcitonin Urine Color Urine Appearance Urine pH Ur Specific Pearl Urine Protein Urine Glucose (UA) Urine Ketones Urine Blood Urine Nitrite Urine Bilirubin Urine Urobilinogen Ur Leukocyte Esterase Urine WBC (Auto) Urine RBC (Auto) U Hyaline Cast (Auto) U Epithel Cells (Auto) Urine Bacteria (Auto) Urine Opiates Screen Ur Methadone, Qual Urine Barbiturates Ur Phencyclidine (PCP) U Amphetamin/Meth Scrn MDMA (Ecstasy) Screen U Benzodiazepines Scrn Ur Cocaine Metabolite U Marijuana (THC) Screen Anaplasma Smear See Comment Babesia Smear See Comment Lyme Disease IgG Ab Lyme Disease IgM Ab SARS-CoV-2 (PCR) Influenza Type A (PCR) Influenza Type B (PCR) RSV (RT-PCR) Streptococcus sp PCR DETECTED A Bld Cult ID Panel PCR See PCR Comment 12/07/22 12/07/22 12/07/22 11:42 11:58 18:27 WBC RBC Hgb Hct MCV MCH MCHC RDW Std Deviation RDW Coeff of Diamond Plt Count MPV Immature Gran % (Auto) Neut % (Auto) Lymph % (Auto) [place] % (Auto) Eos % (Auto) Baso % (Auto) Neut # (Auto) Lymph # (Auto) [place] # (Auto) Eos # (Auto) Baso # (Auto) Immature Gran # (Auto) ESR Sodium Potassium Chloride Carbon Dioxide Anion Gap BUN Creatinine Est Cr Clr Drug Dosing Est GFR ( Amer) Est GFR (Non-Af Amer) BUN/Creatinine Ratio Glucose Lactate 1.7 Calcium Magnesium Total Bilirubin AST ALT Alkaline Phosphatase C-Reactive Protein Total Protein Albumin Globulin Albumin/Globulin Ratio Procalcitonin Urine Color Urine Appearance Urine pH Ur Specific Pearl Urine Protein Urine Glucose (UA) Urine Ketones Urine Blood Urine Nitrite Urine Bilirubin Urine Urobilinogen Ur Leukocyte Esterase Urine WBC (Auto) Urine RBC (Auto) U Hyaline Cast (Auto) U Epithel Cells (Auto) Urine Bacteria (Auto) Urine Opiates Screen Neg Ur Methadone, Qual Neg Urine Barbiturates Neg Ur Phencyclidine (PCP) Neg U Amphetamin/Meth Scrn Neg MDMA (Ecstasy) Screen Neg U Benzodiazepines Scrn Neg Ur Cocaine Metabolite Neg U Marijuana (THC) Screen Neg Anaplasma Smear Babesia Smear Lyme Disease IgG Ab Lyme Disease IgM Ab SARS-CoV-2 (PCR) NEGATIVE Influenza Type A (PCR) Negative Influenza Type B (PCR) Negative RSV (RT-PCR) Negative Streptococcus sp PCR Bld Cult ID Panel PCR 12/07/22 12/08/22 12/08/22 18:27 07:12 07:12 WBC 9.27 RBC 3.83 L Hgb 10.9 L Hct 31.3 L MCV 81.7 MCH 28.5 MCHC 34.8 RDW Std Deviation 35.6 L RDW Coeff of Diamond 11.9 Plt Count 177 MPV 9.2 L Immature Gran % (Auto) 0.6 Neut % (Auto) 73.3 Lymph % (Auto) 14.6 [place] % (Auto) 9.4 Eos % (Auto) 1.7 Baso % (Auto) 0.4 Neut # (Auto) 6.79 H Lymph # (Auto) 1.35 [place] # (Auto) 0.87 H Eos # (Auto) 0.16 Baso # (Auto) 0.04 Immature Gran # (Auto) 0.06 ESR Sodium 135 L Potassium 3.9 Chloride 98 Carbon Dioxide 29 Anion Gap 8 BUN 14 Creatinine 0.63 Est Cr Clr Drug Dosing 164.9 Est GFR ( Amer) 134.1 Est GFR (Non-Af Amer) 115.7 BUN/Creatinine Ratio 22.2 H Glucose 94 Lactate Calcium 9.1 Magnesium Total Bilirubin AST ALT Alkaline Phosphatase C-Reactive Protein Total Protein Albumin Globulin Albumin/Globulin Ratio Procalcitonin Urine Color Dark Yellow Urine Appearance Clear Urine pH 5.5 Ur Specific Pearl 1.014 Urine Protein Trace H Urine Glucose (UA) Negative Urine Ketones 1+ H Urine Blood 2+ H Urine Nitrite Negative Urine Bilirubin Negative Urine Urobilinogen Negative Ur Leukocyte Esterase Negative Urine WBC (Auto) 1-5 Urine RBC (Auto) 0-4 U Hyaline Cast (Auto) 1-5 U Epithel Cells (Auto) 0-5 Urine Bacteria (Auto) Negative Urine Opiates Screen Ur Methadone, Qual Urine Barbiturates Ur Phencyclidine (PCP) U Amphetamin/Meth Scrn MDMA (Ecstasy) Screen U Benzodiazepines Scrn Ur Cocaine Metabolite U Marijuana (THC) Screen Anaplasma Smear Babesia Smear Lyme Disease IgG Ab Lyme Disease IgM Ab SARS-CoV-2 (PCR) Influenza Type A (PCR) Influenza Type B (PCR) RSV (RT-PCR) Streptococcus sp PCR Bld Cult ID Panel PCR Diagnostic Findings /4 blood cultures + for gram positive cocci in chains (strep on Bio[employer] panel) PG Care Time/CCT Total # of Minutes Spent Total Time Spent with Patient: Total time spent is greater than 50% in coordination of care (as documented) at patient's floor/unit and/or counseling patient: Coding Level of Care Code 43068 SUB INP/OBS CARE 3/50MIN Diagnoses Streptococcal bacteremia R78.81; B95.5 Aortic valve endocarditis I35.8 Septicemia A41.9 Right groin pain R10.31 History of intravenous drug abuse F19.11 Pain of right heel M79.671
[2022-12-08] MEDS ORDERED: VANCOMYCIN HCL 1,250 MG in SODIUM CHLORIDE 0.9% 500 ML IV SCH (23:00)
[2022-12-09] MEDS: HEPARIN SOD 5,000 UNIT/0.5 ML VIAL SQ SCH ×3 (06:04→21:11)
[2022-12-09 06:22] LABS: Basophils # (auto) 0.03 K/uL (0.00-0.20); Basophils % (auto) 0.3 %; Eosinophils % (auto) 2.3 %; Hematocrit (blood only) 30.7 % (42.0-52.0); Hemoglobin 10.5 g/dl (14.0-18.0); Immature Granulocytes # (auto) 0.06 K/uL (0.01-0.20); Immature Granulocytes % (auto) 0.7 %; Lymphocytes % (auto) 19.6 %; Mean Corpuscular Hemoglobin 28.8 pg (25.0-34.0); Mean Corpuscular Hgb Conc 34.2 g/dL (32.0-36.0); Mean Corpuscular Volume 84.1 fL (80.0-100.0); Mean Platelet Volume 9.1 fL (9.4-12.4); Monocytes # (auto) 0.79 K/uL (0.11-0.59); Monocytes % (auto) 9.1 %; Neutrophils # (auto) 5.91 K/uL (1.40-6.50); Platelet Count 186 K/uL (130-400); RDW Coefficient of Variation 11.9 % (11.5-14.5); RDW Standard Deviation 36.4 fL (36.4-46.3); Red Blood Count 3.65 M/uL (4.70-6.10); White Blood Count 8.69 K/ul (4.8-10.8)
[2022-12-09 06:30] LABS: BUN Creatinine Ratio 21.4 (10-20); Creatinine Clr Calc Pharmacy 148.4 ml/min; Est GFR (African American) 128.4 ml/min; Est GFR (Non-African American) 110.8 ml/min; Potassium 3.9 mmol/L (3.5-5.1)
[2022-12-09] MEDS: BUPRENORPHINE/NALOXONE 8/2 MG TAB SL SCH ×2 (08:44→20:19)
[2022-12-09] MEDS ORDERED: GADOBUTROL 65ML VIAL IV ONE (10:33)
--- NOTE | 2022-12-09 11:23 | Magnetic Resonance Report ---
MR pelvis wo/w con HISTORY: 47 years-old Male bacteremia/endocarditis,?osteomyelitis pelvic bone acute pain of the pelv is with bacteremia. Clinical concern for osteomyelitis. COMPARISON: MRI lumbar spine 12/07/2022 TECHNIQUE: Multiplanar multisequence MRI of the pelvis was obtained both with and without the use of IV contrast. FINDINGS: Motion degraded exam. Prostate is upper limits of normal in size. Unremarkable urinary bladder. No fr ee pelvic fluid or bowel wall thickening. No lymphadenopathy. Mild nonspecific edema noted within the bilateral gluteus minimus distributions. There is no acute fracture identified. There is marked marrow edema within the bilateral pubic bones which is symmetric and centered around the pubic symphysis which demonstrates bony irregularity with decreased T1 signal and avid enhancement. There is no abscess or significant soft tissue edema. Rosario l appearance of the sciatic nerve. Degenerative changes of the lower lumbar spine. IMPRESSION: 1. Nonspecific marrow edema and enhancement within the pubic bones centered around the pubic symphysi s. Findings may be on a degenerative/reactive basis however developing osteomyelitis could appear sim ilarly. Correlate clinically. 2. No acute fracture. 3. No abscess. ACT 112: Negative or not required by law. The above report was generated using voice recognition software. It may contain grammatical, syntax o r spelling errors. Electronically signed by: Hudson Do M.D. 12/09/2022 11:21 AM
[2022-12-09] MEDS: cefTRIAXone SODIUM 2,000 MG in DEXTROSE 5 % MINI-B 50 ML IV SCH (14:57)
--- NOTE | 2022-12-09 16:40 | Cardiology Consultation ---
Date of Consultation December 09, 2022 Assessment & Plan (1) Aortic valve endocarditis: Plan 1. Aortic valve endocarditis: The responsible organism appears to be streptococcal. Unclear if the valve was abnormal to begin with. The patient does not recall any cardiac problems leading up to this event or any history of an echocardiogram. Likely seeded from another source. This is not appear to be related to intravenous drug abuse by history and infection of left-sided valves would be less likely. Does have an element of valve dysfunction manifest primarily by regurgitation. Will need to watch the valve closely. Hopefully on antibiotic treatment will see improvement over time. I think we will repeat another echocardiogram tomorrow to evaluate the regurgitation. Will monitor him for symptoms of significant valve dysfunction. Indications for operative intervention would be persistent infection, worsening valve function, evidence of abscess formation, symptoms of heart failure and possibly for embolic phenomenon. While the size of the lesion is large, would hesitate to refer him for prophylactic valve surgery given his young age. History of Present Illness Reason for Consultation: Endocarditis Requesting Physician: Ford Attending Physician: Eyal Youngblood MD History of Present Illness The patient is a 47-year-old gentleman who presented to the hospital with symptoms of fevers and chills. His evaluation revealed streptococcal bacteremia and an echocardiogram performed yesterday also demonstrated a large vegetation on the aortic valve. Patient states that for couple of weeks he has had some discomfort along the left chest or flank. He was told this represented some form of pulled muscle. He has also had some discomfort involving the right groin to the point we has some difficulty walking. He had some mild back pain recently as well. He denies any tooth pain or difficulty eating. No jaw pain. He denies any skin lesions or other joint pains. He has been asked by multiple providers about intravenous drug use and has not participated intravenous drug use recently. No recent dental visits. At the time I interviewed the patient claims to be feeling better. Still somewhat fatigued. He states that it is hard to do most activity at this point. Not exclusively related to any particular symptom. He specifically denies significant breathing trouble either at rest or with activity. No dizziness or lightheadedness. No chest pain. No sense of palpitation. Allergies Allergy/AdvReac Type Severity Reaction Status Date / Time No Known Allergies Allergy Verified 11/22/22 09:30 Home Medications Medication Instructions Recorded Confirmed Type acetaminophen 500 mg tablet 500 mg PO Q6H PRN Pain 11/16/22 12/07/22 History buprenorphine 8 mg-naloxone 2 mg 0.5 tab sublingual AMPM 11/16/22 12/07/22 History sublingual tablet meloxicam 15 mg tablet 7.5 mg PO BID PRN pain #30 tabs 11/22/22 12/07/22 Rx Centrum Men 1 tab PO DAILY 12/07/22 12/07/22 History Patient History Medical History Undescended left testicle Undescended testicle, unspecified Surgical History No significant past surgical history Family History Father Myocardial infarction, Onset Age: 53 Diabetes Denies family history of Ovarian cancer Prostate cancer Breast cancer Colorectal cancer Social History Smoking Status: Former smoker Tobacco Type: E-cigarettes / Vaping Age Started Using Tobacco: 14; packs per day: 1; Cigarettes Per Day: 20; Second Hand Exposure: Yes; Do You Dip or Chew Tobacco: No; Hx Alcohol Use: No Hx Substance Use: No Preferred Language: Mongolian Communication Ability: Effective Visual Impairment: No Limitations Hearing Ability: Normal Logistics Loss Prevention Manager Required: No Beliefs That Will Affect Care: None marital status: Single Current Living Situation: Other Current Living Situation Comment: Roomates current occupational status: employed 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 Mood and affect appeared normal. He answered all questions appropriately. HEENT: Pupils are equal and reactive to light and accommodation. Extraocular movements are intact. The sclerae are anicteric. Neuro: Cranial nerves intact Lungs: Clear to auscultation bilaterally. He has good air movement without use of accessory muscles. No rales wheezes or rhonchi. Cardiac: Heart demonstrates a regular rate and rhythm. Normal S1 and S2. Musical systolic murmur with short diastolic component Pulses: The patient has palpable radial pulses bilaterally that are equal in intensity Extremities: There was no evidence of hypoperfusion. There is no cyanosis or clubbing. There is no edema. Skin: I did not appreciate any rashes on examination today. Results & Data Vital Signs (Past 12 Hours) Vital Signs Temp Pulse Resp BP Pulse Ox O2 Del Method 12/09/22 14:40 37.2 C 81 16 121/66 97 Room Air 12/09/22 07:46 37.3 C 75 16 112/66 98 Room Air Laboratory Results Abnormal Lab Results 12/09/22 12/09/22 05:45 05:45 WBC 8.69 RBC 3.65 L Hgb 10.5 L Hct 30.7 L MCV 84.1 MCH 28.8 MCHC 34.2 RDW Std Deviation 36.4 RDW Coeff of Diamond 11.9 Plt Count 186 MPV 9.1 L Immature Gran % (Auto) 0.7 Neut % (Auto) 68.0 Lymph % (Auto) 19.6 [place] % (Auto) 9.1 Eos % (Auto) 2.3 Baso % (Auto) 0.3 Neut # (Auto) 5.91 Lymph # (Auto) 1.70 [place] # (Auto) 0.79 H Eos # (Auto) 0.20 Baso # (Auto) 0.03 Immature Gran # (Auto) 0.06 Sodium 135 L Potassium 3.9 Chloride 99 Carbon Dioxide 29 Anion Gap 7 BUN 15 Creatinine 0.70 Est Cr Clr Drug Dosing 148.4 Est GFR ( Amer) 128.4 Est GFR (Non-Af Amer) 110.8 BUN/Creatinine Ratio 21.4 H Glucose 111 H Calcium 9.0 Diagnostic Findings Echocardiogram performed 12/08/2022: Mild left ventricular dilation with ejection fraction of 65-70%. Mobile vegetation of the aortic valve measuring 1.6 x 0.7 cm. Mild to moderate aortic regurgitation. PG Care Time/CCT Total # of Minutes Spent Total Time Spent with Patient: Total time spent is greater than 50% in coordination of care (as documented) at patient's floor/unit and/or counseling patient: Coding Level of Care Code 88494 IN/OBS CONSULT LVL 4,60M Diagnoses Aortic valve endocarditis I35.8
[2022-12-09] MEDS ORDERED: KETOROLAC 30 MG/ML VIAL IV PRN (18:08)
--- NOTE | 2022-12-09 20:03 | Hospitalist Progress Note ---
Date of Service December 09, 2022 Assessment & Plan (1) Streptococcal bacteremia: Plan: / blood cultures positive for such. early ID - alpha strep. 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 if yes - source would be his poor dentition. Echo returned with AV vegetation. The left sided AV endocarditis would argue against IV drug abuse and he denies such as well. Repeat blood cultures remain negative. Continue IV rocephin. Change to PCN or ampicillin in the future depending on final ID and sens. (2) Aortic valve endocarditis: Plan: Large AV vegetation seen on echo. Appreciate Dr Davey's consultation. Repeat echo tomorrow due to AI (murmur on exam c/w such). Fortunately no acute CHF. (3) Septicemia: Plan: 2nd to strep as above (4) Right groin pain: Plan: Has a small right inguinal hernia but this is unlikely the cause of his pain. On CT pelvis done earlier this month it showed "Sclerotic change is noted in the pubic symphysis." MRI pelvis w/ and w/o contrast with pubic symphysis changes that likely are osteomyelitis. This would cause the groin pain and ambulation difficulties. No psoas abscess seen. Rx will be 6 weeks regardless which will cover any osteo if present in the pubic bones. PT eval. Toradol IV prn. (5) History of intravenous drug abuse: Plan: Patient denied such at time of admission. Cont Suboxone 8/2mg -- 0.5 tablet BID. Prescribed by local digital product specialist. (6) Pain of right heel: Plan: Again none on examination. Could not reproduce any pain. Radicular pain from L5-S1 herniated disc?? Follow carefully. (7) Osteomyelitis of symphysis pubis: Plan: highly suspected especially in light of #1, #2 Rx - IV abx pain control - add toradol IV WBAT PT eval Plan DVT proph - heparin 5000 TID plan for ID consult on Sunday plan of care extensively discussed with patient today appreciate cardiology consult & recs Admission and Anticipated Discharge Date Admission Date: December 07, 2022 Subjective feels a little better in comparison to yesterday not as fatigued appetite a little improved continues with R groin pain which makes ambulation very difficult having to use crutches to ambulate we discussed that the strep species growing may have come from his oral cavity due to dental problems we discussed having certain molars removed that have severely decayed Review of Systems Review of Systems: gen - no fevers cv - no orthopnea, no PND, no edema musculo - R groin pain continues; R foot pain resolved pulm - no GONG neuro - no headaches or focal motor weakness psych - doesn't feel confused Physical Exam Physical Exam: gen - looks slightly better today, NAD, slight tremors of arms? mouth - MMM, poor dentition (maxillary molars b/l) neck - no JVD heart - RRR, s1 s2, 1-2/6 diastolic murmur RUSB and LLSB lungs - CTA b/l abd - soft NT ND BS+; no HSM ext - no ankle edema, pulses 2+ b/l skin - petechiae present on b/l shins and dorsum of feet musculo - R foot/ankle - no tenderness to palpation or with passive ROM Results & Data Results & Data Vital Signs (Past 12 Hours) Vital Signs Temp Pulse Resp BP Pulse Ox O2 Del Method 12/09/22 14:40 37.2 C 81 16 121/66 97 Room Air Laboratory Results Laboratory Results - last 24 hr 12/09/22 12/09/22 05:45 05:45 WBC 8.69 RBC 3.65 L Hgb 10.5 L Hct 30.7 L MCV 84.1 MCH 28.8 MCHC 34.2 RDW Std Deviation 36.4 RDW Coeff of Diamond 11.9 Plt Count 186 MPV 9.1 L Immature Gran % (Auto) 0.7 Neut % (Auto) 68.0 Lymph % (Auto) 19.6 [place] % (Auto) 9.1 Eos % (Auto) 2.3 Baso % (Auto) 0.3 Neut # (Auto) 5.91 Lymph # (Auto) 1.70 [place] # (Auto) 0.79 H Eos # (Auto) 0.20 Baso # (Auto) 0.03 Immature Gran # (Auto) 0.06 Sodium 135 L Potassium 3.9 Chloride 99 Carbon Dioxide 29 Anion Gap 7 BUN 15 Creatinine 0.70 Est Cr Clr Drug Dosing 148.4 Est GFR ( Amer) 128.4 Est GFR (Non-Af Amer) 110.8 BUN/Creatinine Ratio 21.4 H Glucose 111 H Calcium 9.0 Diagnostic Findings Microbiology 12/08/22 11:44 Blood Aerobic Blood Culture - Preliminary No growth in Aerobic bottle after 24 hours. 12/08/22 11:44 Blood Anaerobic Blood Culture - Preliminary No growth in Anaerobic bottle after 24 hours. 12/08/22 11:37 Blood Aerobic Blood Culture - Preliminary No growth in Aerobic bottle after 24 hours. 12/08/22 11:37 Blood Anaerobic Blood Culture - Preliminary No growth in Anaerobic bottle after 24 hours. 12/07/22 11:42 Blood Aerobic Blood Culture - Preliminary Alpha strep not S.pne/enteroco 12/07/22 11:42 Blood Anaerobic Blood Culture - Preliminary Alpha strep not S.pne/enteroco 12/07/22 11:35 Blood Aerobic Blood Culture - Preliminary Alpha strep not S.pne/enteroco 12/07/22 11:35 Blood Anaerobic Blood Culture - Preliminary Alpha strep not S.pne/enteroco Pelvis MRI 12/09/22 09:16 MR pelvis wo/w con HISTORY: 47 years-old Male bacteremia/endocarditis,?osteomyelitis pelvic bone acute pain of the pelvis with bacteremia. Clinical concern for osteomyelitis. COMPARISON: MRI lumbar spine 12/07/2022 TECHNIQUE: Multiplanar multisequence MRI of the pelvis was obtained both with and without the use of IV contrast. FINDINGS: Motion degraded exam. Prostate is upper limits of normal in size. Unremarkable urinary bladder. No free pelvic fluid or bowel wall thickening. No lymphadenopathy. Mild nonspecific edema noted within the bilateral gluteus minimus distributions. There is no acute fracture identified. There is marked marrow edema within the bilateral pubic bones which is symmetric and centered around the pubic symphysis which demonstrates bony irregularity with decreased T1 signal and avid enhancement. There is no abscess or significant soft tissue edema. Normal appearance of the sciatic nerve. Degenerative changes of the lower lumbar spine. IMPRESSION: 1. Nonspecific marrow edema and enhancement within the pubic bones centered around the pubic symphysis. Findings may be on a degenerative/reactive basis however developing osteomyelitis could appear similarly. Correlate clinically. 2. No acute fracture. 3. No abscess. ACT 112: Negative or not required by law. The above report was generated using voice recognition software. It may contain grammatical, syntax or spelling errors. Electronically signed by: Hudson Do M.D. 12/09/2022 11:21 AM PG Care Time/CCT Total # of Minutes Spent Total Time Spent with Patient: Total time spent is greater than 50% in coordination of care (as documented) at patient's floor/unit and/or counseling patient: Coding Level of Care Code 13529 SUB INP/OBS CARE 2MIN Diagnoses Streptococcal bacteremia R78.81; B95.5 Aortic valve endocarditis I35.8 Septicemia A41.9 Right groin pain R10.31 History of intravenous drug abuse F19.11 Pain of right heel M79.671 Osteomyelitis of symphysis pubis M86.9
[2022-12-10] MEDS: HEPARIN SOD 5,000 UNIT/0.5 ML VIAL SQ SCH ×3 (05:09→21:11)
[2022-12-10 08:13] LABS: Basophils # (auto) 0.03 K/uL (0.00-0.20); Basophils % (auto) 0.3 %; Eosinophils # (auto) 0.22 K/uL (0.00-0.50); Eosinophils % (auto) 2.4 %; Hemoglobin 10.4 g/dl (14.0-18.0); Immature Granulocytes # (auto) 0.03 K/uL (0.01-0.20); Immature Granulocytes % (auto) 0.3 %; Lymphocytes # (auto) 1.87 K/uL (1.20-3.40); Lymphocytes % (auto) 20.7 %; Mean Corpuscular Hemoglobin 28.5 pg (25.0-34.0); Mean Corpuscular Hgb Conc 33.5 g/dL (32.0-36.0); Mean Corpuscular Volume 84.9 fL (80.0-100.0); Mean Platelet Volume 9.1 fL (9.4-12.4); Monocytes # (auto) 0.66 K/uL (0.11-0.59); Monocytes % (auto) 7.3 %; Neutrophils # (auto) 6.24 K/uL (1.40-6.50); Platelet Count 203 K/uL (130-400); RDW Coefficient of Variation 12.1 % (11.5-14.5); RDW Standard Deviation 37.6 fL (36.4-46.3); Red Blood Count 3.65 M/uL (4.70-6.10); White Blood Count 9.05 K/ul (4.8-10.8)
[2022-12-10 08:27] LABS: BUN Creatinine Ratio 19.7 (10-20); Creatinine Clr Calc Pharmacy 146.3 ml/min; Est GFR (African American) 127.7 ml/min; Est GFR (Non-African American) 110.2 ml/min
[2022-12-10] MEDS: BUPRENORPHINE/NALOXONE 8/2 MG TAB SL SCH ×2 (08:46→21:10)
--- NOTE | 2022-12-10 09:56 | Cardiology Progress Note ---
Date of Service December 10, 2022 Assessment & Plan (1) Aortic valve endocarditis: Plan 1. Aortic valve endocarditis: No new symptoms. No change in the murmur. Will reassess the valve function with an echocardiogram tomorrow. Blood cultures from 12/08 still negative. Admission and Anticipated Discharge Date Admission Date: December 07, 2022 Subjective This morning the patient was feeling well. He states that every day he feels somewhat better. He was ambulatory around his room but did minimal ambulation in the hallway. He did not report any orthopnea. No significant breathing difficulty. No palpitations. No chest pain. Review of Systems Review of Systems: Per HPI Physical Exam Physical Exam: The patient is alert and oriented. Mood and affect appeared normal. He answered all questions appropriately. HEENT: Pupils are equal and reactive to light and accommodation. Extraocular movements are intact. The sclerae are anicteric. Neuro: Cranial nerves intact Lungs: Clear to auscultation bilaterally. He has good air movement without use of accessory muscles. No rales wheezes or rhonchi. Cardiac: Heart demonstrates a regular rate and rhythm. Normal S1 and S2. Musical systolic murmur with short diastolic component Pulses: The patient has palpable radial pulses bilaterally that are equal in intensity Extremities: There was no evidence of hypoperfusion. There is no cyanosis or clubbing. There is no edema. Skin: I did not appreciate any rashes on examination today. Results & Data Vital Signs (Past 12 Hours) Vital Signs Temp Pulse Resp BP Pulse Ox O2 Del Method 12/10/22 07:38 37.1 C 87 16 115/62 99 Room Air Laboratory Results Abnormal Lab Results 12/10/22 12/10/22 07:55 07:55 WBC 9.05 RBC 3.65 L Hgb 10.4 L Hct 31.0 L MCV 84.9 MCH 28.5 MCHC 33.5 RDW Std Deviation 37.6 RDW Coeff of Diamond 12.1 Plt Count 203 MPV 9.1 L Immature Gran % (Auto) 0.3 Neut % (Auto) 69.0 Lymph % (Auto) 20.7 [place] % (Auto) 7.3 Eos % (Auto) 2.4 Baso % (Auto) 0.3 Neut # (Auto) 6.24 Lymph # (Auto) 1.87 [place] # (Auto) 0.66 H Eos # (Auto) 0.22 Baso # (Auto) 0.03 Immature Gran # (Auto) 0.03 Sodium 135 L Potassium 4.0 Chloride 100 Carbon Dioxide 29 Anion Gap 6 BUN 14 Creatinine 0.71 Est Cr Clr Drug Dosing 146.3 Est GFR ( Amer) 127.7 Est GFR (Non-Af Amer) 110.2 BUN/Creatinine Ratio 19.7 Glucose 112 H Calcium 9.0 PG Care Time/CCT Total # of Minutes Spent Total Time Spent with Patient: Total time spent is greater than 50% in coordination of care (as documented) at patient's floor/unit and/or counseling patient: Coding Level of Care Code 22522 SUB INP/OBS CARE 2/35MIN Diagnoses Aortic valve endocarditis I35.8
[2022-12-10] MEDS: cefTRIAXone SODIUM 2,000 MG in DEXTROSE 5 % MINI-B 50 ML IV SCH (14:58)
--- NOTE | 2022-12-10 20:33 | Hospitalist Progress Note ---
Date of Service December 10, 2022 Assessment & Plan (1) Streptococcal bacteremia: Plan: / blood cultures positive for such. early ID - alpha strep. 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 if yes - source would likely be his poor dentition. Echo returned with AV vegetation; the vegetation is large. The left sided AV endocarditis would argue against IV drug abuse and he denies such as well. Repeat blood cultures cont to remain negative. Continue IV rocephin. Change to PCN or ampicillin in the future depending on final ID and sens. Will involve ID cardiology clinical consultant tomorrow. (2) Aortic valve endocarditis: Plan: Large AV vegetation seen on echo. Appreciate Dr Davey's consultation. Repeat echo tomorrow due to AI (murmur on exam c/w such). Fortunately no acute CHF. Fortunately no large septic emboli burden at this time. No neurological symptoms to suggest septic emboli to the brain. C-spine, T-spine, L-spine w/o obvious abscess or discitis although these were non-contrast MRIs. (3) Septicemia: Plan: 2nd to strep as above (4) Right groin pain: Plan: Has a small right inguinal hernia but this is unlikely the cause of his pain. On CT pelvis done earlier this month it showed "Sclerotic change is noted in the pubic symphysis." MRI pelvis w/ and w/o contrast with pubic symphysis changes that likely are osteomyelitis. This would cause the groin pain and ambulation difficulties. No psoas abscess seen. Rx will be 6 weeks regardless which will cover any osteo if present in the pubic bones. PT eval. Toradol IV prn. (5) History of intravenous drug abuse: Plan: Patient denied such at time of admission. Cont Suboxone 8/2mg -- 0.5 tablet BID. Prescribed by local process control specialist. (6) Pain of right heel: Plan: Again none on examination. Could not reproduce any pain. Radicular pain from L5-S1 herniated disc?? Follow carefully. (7) Osteomyelitis of symphysis pubis: Plan: highly suspected especially in light of #1, #2 Rx - IV abx pain control - add toradol IV WBAT PT eval (8) Pain of left calf: Plan: will obtain doppler --> r/o DVT toradol prn pain Plan DVT proph - heparin 5000 TID plan for ID consult on Sunday plan of care extensively discussed with patient today appreciate cardiology consult & recs Admission and Anticipated Discharge Date Admission Date: December 07, 2022 Subjective R groin pain improved w/ toradol able to walk a bit more comfortably today now c/o L calf pain - started about 4-6 hours ago hurts to move his L foot which brings on the pain no dyspnea no GONG no chest pain no abd pain eating fair Review of Systems Review of Systems: gen - no fevers, no chills neuro - no headache HENT - no dental pain GI - no N/V/diarrhea Physical Exam Physical Exam: gen - looks better again today, NAD, slight tremors of arms mouth - MMM, poor dentition (maxillary molars b/l) neck - no JVD heart - RRR, s1 s2, 1-2/6 diastolic murmur RUSB and LLSB lungs - CTA b/l abd - soft NT ND BS+; no HSM ext - no ankle edema, pulses 2+ b/l skin - petechiae present on b/l shins - no change musculo - left calf w/o palpable cord, swelling, or tenderness; no warmth Results & Data Results & Data Vital Signs (Past 12 Hours) Vital Signs Temp Pulse Resp BP Pulse Ox O2 Del Method 12/10/22 14:44 37.3 C 78 18 122/65 96 Room Air Laboratory Results Laboratory Results - last 24 hr 12/10/22 12/10/22 07:55 07:55 WBC 9.05 RBC 3.65 L Hgb 10.4 L Hct 31.0 L MCV 84.9 MCH 28.5 MCHC 33.5 RDW Std Deviation 37.6 RDW Coeff of Diamond 12.1 Plt Count 203 MPV 9.1 L Immature Gran % (Auto) 0.3 Neut % (Auto) 69.0 Lymph % (Auto) 20.7 [place] % (Auto) 7.3 Eos % (Auto) 2.4 Baso % (Auto) 0.3 Neut # (Auto) 6.24 Lymph # (Auto) 1.87 [place] # (Auto) 0.66 H Eos # (Auto) 0.22 Baso # (Auto) 0.03 Immature Gran # (Auto) 0.03 Sodium 135 L Potassium 4.0 Chloride 100 Carbon Dioxide 29 Anion Gap 6 BUN 14 Creatinine 0.71 Est Cr Clr Drug Dosing 146.3 Est GFR ( Amer) 127.7 Est GFR (Non-Af Amer) 110.2 BUN/Creatinine Ratio 19.7 Glucose 112 H Calcium 9.0 PG Care Time/CCT Total # of Minutes Spent Total Time Spent with Patient: Total time spent is greater than 50% in coordination of care (as documented) at patient's floor/unit and/or counseling patient: Coding Level of Care Code 02101 SUB INP/OBS CARE 235MIN Diagnoses Streptococcal bacteremia R78.81; B95.5 Aortic valve endocarditis I35.8 Septicemia A41.9 Right groin pain R10.31 History of intravenous drug abuse F19.11 Pain of right heel M79.671 Osteomyelitis of symphysis pubis M86.9 Pain of left calf M79.662
--- NOTE | 2022-12-10 22:32 | Ultrasound Report ---
Exam(s): US VENOUS LEFT LOWER EXTREMITY EXAM: US Duplex Left Lower Extremity Veins CLINICAL HISTORY: Reason for exam: left calf pain; eval 4 DVT. TECHNIQUE: Real-time duplex ultrasound scan of the left lower extremity veins integrating B-mode two-dimensional vascular structure, Doppler spectral analysis, color flow Doppler imaging and compression. COMPARISON: None. FINDINGS: Deep veins: Unremarkable. No DVT in the visualized common femoral, femoral, proximal deep femoral or popliteal veins. The veins demonstrate normal color flow, are normally compressible, with normal phasic flow and/or augmentation response. Superficial veins: Unremarkable. No thrombus in the visualized great saphenous vein. Soft tissues: No acute findings. No popliteal cyst. IMPRESSION: No ultrasonographic evidence of deep venous thrombosis involving the left lower extremity. Electronically signed by: Varsha Watts MD 12/10/22 22:31 PM
[2022-12-11] MEDS: HEPARIN SOD 5,000 UNIT/0.5 ML VIAL SQ SCH ×3 (05:53→21:27)
--- NOTE | 2022-12-11 09:08 | XCELERA ---
[id number]
[2022-12-11] MEDS: BUPRENORPHINE/NALOXONE 8/2 MG TAB SL SCH ×2 (10:43→21:28)
--- NOTE | 2022-12-11 14:35 | Infectious Disease Consult ---
Date of Consultation December 11, 2022 Assessment & Plan (1) Aortic valve endocarditis: (2) Streptococcal bacteremia: (3) Osteomyelitis of symphysis pubis: Plan 47-year-old male with pmh IVDU 30 years on suboxone presents with 2 wks of fever and fatigue . He has been feeling unwell for about 1 month with R groin pain , arthralgias. He was seen in Ed a few weeks ago and imaging showed a sm r groin hernia. He also noted back pain a few months ago after he pulled a muscle which has resolved. He denies WYMAN, rash, skin wounds, breakdown , abdominal pain, recent IV drug use, sob, change in Bowel or urine habits. He has poor dentition but no new dental pain. He has vague pelvic discomfort. On admission he is HDS , Labs noted for wbc 16.59, esr 91, crp 20.92> Lower extremity doppler w/o DVT, Cervical, thoracic, and lumbar spine without osteomyelitis or abscess.. Pelvis MRI w/ nonspecific marrow edema and enhancement within the pubic bones centered around the pubic symphysis. Findings may be on a degenerative/reactive basis however developing osteomyelitis could look similar. TTE shows a large highly mobile vegetation involving the AV , approximately 1.6* 0.7 cm, mild - moderate aortic regurgitation. BC with 4/4 bottles positive for strep anginosus. He was evaluated by Cardiology . given size of vegetation. They held off on referring him to surgery as no worsening valve function, abscess or symptoms of HF or emboli. ID consulted for AV endocarditis. 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 Source of bacteremia may be from poor dent ition ( oral charles) less likely GI (no ab symptoms) ---> pelvic OM, Av endocarditis . He is a former IVDU, but denies active use. He denies skin trauma, recent IV injection. He has vague pelvic discomfort,without back pain. Spinal imaging w/o osteomyelitis or abscess. Dentition is poor but not pain or signs of acute infection.. Continue Ceftriaxone 2 g iv daily Follow up repeat BC Dental Xray if BC persistently + , surgical eval monitor for sign of emboli Anticipate at least 6 weeks abx from sterile BC Thank you for this consultation. ID will continue to follow. Park Arredondo MD, MPH Infectious Disease [facility], [facility] Call [phone] with questions Consultation Information Consultation was provided via telemedicine using two-way real-time interactive telecommunication between the patient and the telemedicine provider. For the duration of the visit, the provider was performing the assessment from a di fferent facility than the patient. This includesuse of bluetooth stethoscope forauscultationperformed by the telepresenter that the telemedicine provider can hear if described in the physical exam. [employer] contact information: Please call [facility] Call Center [phone]. (Phone Number For Physician Use Only) After establishing a telemedicine visit, patient was: Patient was verified with two unique identifiers and Patient/authorized rep acknowledged consent and understanding Time Spent with Patient: Initial => 75 min History of Present Illness Reason for Consultation: AV endocarditis 2/2 strep anginosus Requesting Physician: Eyal Youngblood MD Attending Physician: Eyal Youngblood MD History of Present Illness 47-year-old male with pmh IVDU 30 years on suboxone presents with 2 wks of fever and fatigue . He has been feeling unwell for about 1 month with R groin pain , arthralgias. He was seen in Ed a few weeks ago and imaging showed a sm r groin hernia. He also noted back pain a few months ago after he pulled a muscle which has resolved. He denies WYMAN, rash, skin wounds, breakdown , abdominal pain, recent IV drug use, sob, change in Bowel or urine habits. He has poor dentition but no new dental pain. He has vague pelvic discomfort. On admission he is HDS , Labs noted for wbc 16.59, esr 91, crp 20.92. Lower extremity doppler w/o DVT, Cervical, thoracic, and lumbar spine without osteomyelitis or abscess.. Pelvis MRI w/ nonspecific marrow edema and enhance ment within the pubic bones centered around the pubic symphysis. Findings may be on a degenerative/reactive basis however developing osteomyelitis could look similar. TTE shows a large highly mobile vegetation involving the AV , approximately 1.6* 0.7 cm, mild - moderate aortic regurgitation. BC with 4/4 bottles positive for strep anginosus. He was evaluated by Cardiology . given size of vegetation. They held off on referring him to surgery as no worsening valve function, abscess or symptoms of HF or emboli. ID consulted for AV endocarditis. Allergies Allergy/AdvReac Type Severity Reaction Status Date / Time No Known Allergies Allergy Verified 11/22/22 09:30 Home Medications Medication Instructions Recorded Confirmed Type acetaminophen 500 mg tablet 500 mg PO Q6H PRN Pain 11/16/22 12/07/22 History buprenorphine 8 mg-naloxone 2 mg 0.5 tab sublingual AMPM 11/16/22 12/07/22 History sublingual tablet meloxicam 15 mg tablet 7.5 mg PO BID PRN pain #30 tabs 11/22/22 12/07/22 Rx Centrum Men 1 tab PO DAILY 12/07/22 12/07/22 History Patient History Medical History Undescended left testicle Undescended testicle, unspecified Surgical History No significant past surgical history Family History Father Myocardial infarction, Onset Age: 53 Diabetes Denies family history of Ovarian cancer Prostate cancer Breast cancer Colorectal cancer Social History Smoking Status: Former smoker Tobacco Type: E-cigarettes / Vaping Age Started Using Tobacco: 14; packs per day: 1; Cigarettes Per Day: 20; Second Hand Exposure: Yes; Do You Dip or Chew Tobacco: No; Hx Alcohol Use: No Hx Substance Use: No Preferred Language: Danish Communication Ability: Effective Visual Impairment: No Limitations Hearing Ability: Normal 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 [employer] Estate Required: No Beliefs That Will Affect Care: None marital status: Single Current Living Situation: Other Current Living Situation Comment: [place] current occupational status: employed 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 Pertinent Positives as per HP Physical Exam Physical Exam: gen- Nad neck - supple HEENT- poor dentitiaon Card- RRR Lung No increased WOB Abd- soft, not tender MSK- ROM intact Neuro- AAO*3 Results & Data Vital Signs (Past 12 Hours) Vital Signs Temp Pulse Resp BP Pulse Ox O2 Del Method 12/11/22 07:09 37.4 C 71 18 124/64 99 Room Air Laboratory Results Laboratory Results - last 48 hr 12/10/22 12/10/22 07:55 07:55 WBC 9.05 RBC 3.65 L Hgb 10.4 L Hct 31.0 L MCV 84.9 MCH 28.5 MCHC 33.5 RDW Std Deviation 37.6 RDW Coeff of Diamond 12.1 Plt Count 203 MPV 9.1 L Immature Gran % (Auto) 0.3 Neut % (Auto) 69.0 Lymph % (Auto) 20.7 [place] % (Auto) 7.3 Eos % (Auto) 2.4 Baso % (Auto) 0.3 Neut # (Auto) 6.24 Lymph # (Auto) 1.87 [place] # (Auto) 0.66 H Eos # (Auto) 0.22 Baso # (Auto) 0.03 Immature Gran # (Auto) 0.03 Sodium 135 L Potassium 4.0 Chloride 100 Carbon Dioxide 29 Anion Gap 6 BUN 14 Creatinine 0.71 Est Cr Clr Drug Dosing 146.3 Est GFR ( Amer) 127.7 Est GFR (Non-Af Amer) 110.2 BUN/Creatinine Ratio 19.7 Glucose 112 H Calcium 9.0 Diagnostic Findings Microbiology 12/07/22 11:42 Blood Aerobic Blood Culture - Final Streptococcus anginosus group 12/07/22 11:42 Blood Anaerobic Blood Culture - Final Streptococcus anginosus group 12/07/22 11:35 Blood Aerobic Blood Culture - Final Streptococcus anginosus group 12/07/22 11:35 Blood Anaerobic Blood Culture - Final Streptococcus anginosus group 12/08/22 11:44 Blood Aerobic Blood Culture - Preliminary No growth in Aerobic bottle after 48 hours. 12/08/22 11:44 Blood Anaerobic Blood Culture - Preliminary No growth in Anaerobic bottle after 48 hours. 12/08/22 11:37 Blood Aerobic Blood Culture - Preliminary No growth in Aerobic bottle after 48 hours. 12/08/22 11:37 Blood Anaerobic Blood Culture - Preliminary No growth in Anaerobic bottle after 48 hours. Pelvis MRI 12/09/22 09:16 MR pelvis wo/w con HISTORY: 47 years-old Male bacteremia/endocarditis,?osteomyelitis pelvic bone acute pain of the pelvis with bacteremia. Clinical concern for osteomyelitis. COMPARISON: MRI lumbar spine 12/07/2022 TECHNIQUE: Multiplanar multisequence MRI of the pelvis was obtained both with and without the use of IV contrast. FINDINGS: Motion degraded exam. Prostate is upper limits of normal in size. Unremarkable urinary bladder. No free pelvic fluid or bowel wall thickening. No lymphadenopathy. Mild nonspecific edema noted within the bilateral gluteus minimus distributions. There is no acute fracture identified. There is marked marrow edema within the bilateral pubic bones which is symmetric and centered around the pubic symphysis which demonstrates bony irregularity with decreased T1 signal and avid enhancement. There is no abscess or significant soft tissue edema. Normal appearance of the sciatic nerve. Degenerative changes of the lower lumbar spine. IMPRESSION: 1. Nonspecific marrow edema and enhancement within the pubic bones centered around the pubic symphysis. Findings may be on a degenerative/reactive basis however developing osteomyelitis could appear similarly. Correlate clinically. 2. No acute fracture. 3. No abscess. ACT 112: Negative or not required by law. The above report was generated using voice recognition software. It may contain grammatical, syntax or spelling errors. Electronically signed by: Hudson Do M.D. 12/09/2022 11:21 AM Venous Doppler Study 12/10/22 19:25 Exam(s): US VENOUS LEFT LOWER EXTREMITY EXAM: US Duplex Left Lower Extremity Veins CLINICAL HISTORY: Reason for exam: left calf pain; eval 4 DVT. TECHNIQUE: Real-time duplex ultrasound scan of the left lower extremity veins integrating B-mode two-dimensional vascular structure, Doppler spectral analysis, color flow Doppler imaging and compression. COMPARISON: None. FINDINGS: Deep veins: Unremarkable. No DVT in the visualized common femoral, femoral, proximal deep femoral or popliteal veins. The veins demonstrate normal color flow, are normally compressible, with normal phasic flow and/or augmentation response. Superficial veins: Unremarkable. No thrombus in the visualized great saphenous vein. Soft tissues: No acute findings. No popliteal cyst. IMPRESSION: No ultrasonographic evidence of deep venous thrombosis involving the left lower extremity. Electronically signed by: Varsha Watts MD 12/10/22 22:31 PM Medications Administered Home Medications Medication Instructions Recorded Confirmed Last Taken acetaminophen 500 mg tablet 500 mg PO Q6H PRN Pain 11/16/22 12/07/22 11/16/22 buprenorphine 8 mg-naloxone 2 mg 0.5 tab sublingual AMPM 11/16/22 12/07/22 12/07/22 sublingual tablet meloxicam 15 mg tablet 7.5 mg PO BID PRN pain #30 tabs 11/22/22 12/07/22 Unknown Centrum Men 1 tab PO DAILY 12/07/22 12/07/22 Unknown Active Medications Generic Name Dose Route Start Last Admin Trade Name Freq PRN Reason Stop Dose Admin Acetaminophen 650 mg 12/07/22 18:14 12/07/22 23:59 Acetaminophen 325 Mg Tab PO 01/06/23 18:13 650 mg Q4H PRN Administration pain/fever Buprenorphine/Naloxone 0.5 tab 12/07/22 21:00 12/11/22 10:43 Buprenorphine/Naloxone 8/2 Mg Tab SL 01/06/23 20:59 0.5 tab [facility] LIANET Administration Heparin Sodium (Porcine) 5,000 units 12/08/22 09:00 12/11/22 05:53 Heparin Sod 5,000 Unit/0.5 Ml Vial SQ 01/07/23 08:59 Not Given Q8 [facility] Ceftriaxone Sodium 2,000 mg/ 50 mls @ 100 mls/hr 12/08/22 15:00 12/10/22 15:11 Dextrose IV 12/22/22 14:59 Infused Q24H [facility] Infusion Protocol Ketorolac Tromethamine 30 mg 12/09/22 18:08 12/09/22 20:19 Ketorolac 30 Mg/Ml Vial IV 12/14/22 18:07 30 mg Q6H PRN Administration Pain
[2022-12-11] MEDS: cefTRIAXone SODIUM 2,000 MG in DEXTROSE 5 % MINI-B 50 ML IV SCH (14:42)
--- NOTE | 2022-12-11 21:34 | Hospitalist Progress Note ---
Date of Service December 11, 2022 Assessment & Plan (1) Streptococcal bacteremia: Plan: / blood cultures positive for streptococcal anginosus. source - poor dentition (this pathogen is oropharyngeal or GI in origin). Echo returned with AV vegetation; the vegetation is large. The left sided AV endocarditis would argue against IV drug abuse and he denies IV drugs as well. Repeat blood cultures cont to remain negative. Continue IV rocephin. Change to PCN agent? Consult placed to infectious diseases today. Will need at least 6 weeks of Rx. (2) Aortic valve endocarditis: Plan: Large AV vegetation seen on echo. Appreciate Dr Davey's consultation. Repeat echo today shows unchanged size of vegetation and no change in his aortic insufficiency. NO evidence of acute CHF. Fortunately no large septic emboli burden at this time. No neurological symptoms to suggest septic emboli to the brain. C-spine, T-spine, L-spine w/o obvious abscess or discitis although these were non-contrast MRIs. (3) Septicemia: Plan: 2nd to strep as above (4) Right groin pain: Plan: Has a small right inguinal hernia but this is unlikely the cause of his pain. On CT pelvis done earlier this month it showed "Sclerotic change is noted in the pubic symphysis." MRI pelvis w/ and w/o contrast with pubic symphysis changes that likely are osteomyelitis. This would cause the groin pain and ambulation difficulties. No psoas abscess seen. Rx will be 6 weeks regardless which will cover any osteo if present in the pubic bones. PT eval. Toradol IV prn. (5) History of intravenous drug abuse: Plan: Patient denied such at time of admission. Cont Suboxone 8/2mg -- 0.5 tablet BID. Prescribed by local clinical specialist. Tox screen negative at time of admission. (6) Pain of right heel: Plan: Again none on examination. Could not reproduce any pain. Radicular pain from L5-S1 herniated disc?? Follow carefully. (7) Osteomyelitis of symphysis pubis: Plan: highly suspected especially in light of #1, #2 Rx - IV abx pain control with toradol IV WBAT PT eval consider ortho eval for their opinion but suspect only Rx needed is the antibiotic course (8) Pain of left calf: Plan: doppler negative for LLE DVT toradol prn pain Plan DVT proph - heparin 5000 TID plan of care extensively discussed with patient once again today appreciate cardiology consult & recs; care d/w Dr Davey Admission and Anticipated Discharge Date Admission Date: December 07, 2022 Subjective no events overnight he worked with PT/OT today he feels he did ok with ambulation LLE calf pain resolved no right foot pain no cp, dyspnea, or GONG no fevers or chills his energy is better as is appetite underwent repeat echo and had ID consultation today denies any tooth pain Review of Systems Review of Systems: gen - no fevers, chills; fatigue improved cv - no orthopnea pulm - no cough GI - no diarrhea - no LUTS Physical Exam Physical Exam: gen - NAD, slight tremors of arms again noted; looks better overall mouth - MMM, poor dentition (maxillary molars b/l) neck - no JVD heart - RRR, s1 s2, 1-2/6 diastolic murmur RUSB and apex lungs - CTA b/l abd - soft NT ND BS+; no HSM ext - no ankle edema, pulses 2+ b/l skin - petechiae present on b/l shins - slightly improved Results & Data Results & Data Vital Signs (Past 12 Hours) Vital Signs Temp Pulse Resp BP Pulse Ox O2 Del Method 12/11/22 21:03 37.0 C 83 16 120/64 98 Room Air 12/11/22 14:55 37.2 C 85 16 116/55 L 99 Room Air Laboratory Results Microbiology 12/07/22 11:42 Blood Aerobic Blood Culture - Final Streptococcus anginosus group 12/07/22 11:42 Blood Anaerobic Blood Culture - Final Streptococcus anginosus group 12/07/22 11:35 Blood Aerobic Blood Culture - Final Streptococcus anginosus group 12/07/22 11:35 Blood Anaerobic Blood Culture - Final Streptococcus anginosus group 12/08/22 11:44 Blood Aerobic Blood Culture - Preliminary No growth in Aerobic bottle after 48 hours. 12/08/22 11:44 Blood Anaerobic Blood Culture - Preliminary No growth in Anaerobic bottle after 48 hours. 12/08/22 11:37 Blood Aerobic Blood Culture - Preliminary No growth in Aerobic bottle after 48 hours. 12/08/22 11:37 Blood Anaerobic Blood Culture - Preliminary No growth in Anaerobic bottle after 48 hours. Diagnostic Findings Venous Doppler Study 12/10/22 19:25 Exam(s): US VENOUS LEFT LOWER EXTREMITY EXAM: US Duplex Left Lower Extremity Veins CLINICAL HISTORY: Reason for exam: left calf pain; eval 4 DVT. TECHNIQUE: Real-time duplex ultrasound scan of the left lower extremity veins integrating B-mode two-dimensional vascular structure, Doppler spectral analysis, color flow Doppler imaging and compression. COMPARISON: None. FINDINGS: Deep veins: Unremarkable. No DVT in the visualized common femoral, femoral, proximal deep femoral or popliteal veins. The veins demonstrate normal color flow, are normally compressible, with normal phasic flow and/or augmentation response. Superficial veins: Unremarkable. No thrombus in the visualized great saphenous vein. Soft tissues: No acute findings. No popliteal cyst. IMPRESSION: No ultrasonographic evidence of deep venous thrombosis involving the left lower extremity. Electronically signed by: Varsha Watts MD 12/10/22 22:31 PM PG Care Time/CCT Total # of Minutes Spent Total Time Spent with Patient: Total time spent is greater than 50% in coordination of care (as documented) at patient's floor/unit and/or counseling patient: Coding Level of Care Code 66063 SUB INP/OBS CARE 235MIN Diagnoses Streptococcal bacteremia R78.81; B95.5 Aortic valve endocarditis I35.8 Septicemia A41.9 Right groin pain R10.31 History of intravenous drug abuse F19.11 Pain of right heel M79.671 Osteomyelitis of symphysis pubis M86.9 Pain of left calf M79.662
[2022-12-12 04:42] LABS: Babesia microti DNA Not Detected (Not Detected)
[2022-12-12] MEDS: HEPARIN SOD 5,000 UNIT/0.5 ML VIAL SQ SCH ×3 (05:33→21:16)
[2022-12-12] MEDS: BUPRENORPHINE/NALOXONE 8/2 MG TAB SL SCH ×2 (08:17→21:15)
[2022-12-12] MEDS: cefTRIAXone SODIUM 2,000 MG in DEXTROSE 5 % MINI-B 50 ML IV SCH (15:05)
--- NOTE | 2022-12-12 18:55 | Hospitalist Progress Note ---
Date of Service December 12, 2022 Assessment & Plan (1) Streptococcal bacteremia: Plan: 05/16 blood cultures positive for streptococcal anginosus. source - poor dentition (this pathogen is oropharyngeal or GI in origin). Echo returned with AV vegetation; the vegetation is large. The left sided AV endocarditis would argue against IV drug abuse and he denies IV drugs as well. Repeat blood cultures from 12/08 cont to remain negative. appreciate infectious disease consult, reviewed recs in note Continue IV rocephin 2 g IV daily continue for at least 6 weeks from negative blood culture 12/08 place PICC discussed with patient and care coordinatorHome infusion versus daily infusion at [facility] (2) Aortic valve endocarditis: Plan: Large AV vegetation seen on echo. Appreciate Dr Davey's consultation. Repeat echo 12/11 shows unchanged size of vegetation and no change in his aortic insufficiency. NO evidence of acute CHF. Fortunately no large septic emboli burden at this time. No neurological symptoms to suggest septic emboli to the brain. C-spine, T-spine, L-spine w/o obvious abscess or discitis although these were non-contrast MRIs. (3) Septicemia: Plan: 2nd to strep as above resolved (4) Right groin pain: Plan: Possible pelvic osteomyelitis - presume secondary to septic embolus On CT pelvis done earlier this month it showed "Sclerotic change is noted in the pubic symphysis." MRI pelvis w/ and w/o contrast with pubic symphysis changes that likely are osteomyelitis. This would cause the groin pain and ambulation difficulties. No psoas abscess seen. -ambulating (5) History of intravenous drug abuse: Plan: Patient denied such at time of admission. None for 30 years Cont Suboxone 8/2mg -- 0.5 tablet BID. Prescribed by local social problems specialist. Tox screen negative at time of admission. (6) Pain of right heel: Plan: Again none on examination. Could not reproduce any pain. Radicular pain from L5-S1 herniated disc?? Follow carefully. Seems to have resolved (7) Osteomyelitis of symphysis pubis: Plan: highly suspected especially in light of #1, #2 Rx - IV abx pain control with toradol IV WBAT PT eval consider ortho eval for their opinion but suspect only Rx needed is the antibiotic course (8) Pain of left calf: Plan: doppler negative for LLE DVT toradol prn pain seems to have resolved Plan DVT proph - heparin 5000 TID Admission and Anticipated Discharge Date Admission Date: December 07, 2022 Subjective doing well no shortness of breath no chest pain calf and foot pain have resolved. Continues to have midline pain of his pelvis that is worsened with ambulation, it is a little worse today but he did walk around a lot more yesterday than he has previously Physical Exam Physical Exam: PHYSICAL EXAMINATION Last 24h vital signs reviewed, see documentation in flowsheet General: comfortable appearing, no distress HEENT: Normocephalic, atraumatic, pupils round and equal, sclerae anicteric, no conjunctival injection, moist mucus membranes Lungs: Normal respiratory effort. Clear to auscultation bilaterally. No RRW Heart: Regular rate and rhythm, no murmurs. No JVD Abdomen: Soft, nontender, nondistended. Bowel sounds present. Extremities: Warm, dry, well-perfused. No extremity edema. Neuro: Alert and oriented x 4, face symmetric, moves 4 extremities well Psych: Normal affect and behavior Results & Data Results & Data Vital Signs (Past 12 Hours) Vital Signs Temp Pulse Pulse Resp BP Pulse Ox O2 Del Method 12/12/22 14:58 36.7 C 86 18 123/63 100 Room Air 12/12/22 07:25 37.1 C 80 16 124/62 97 Room Air PG Care Time/CCT Total # of Minutes Spent Total Time Spent with Patient: Total time spent is greater than 50% in coordination of care (as documented) at patient's floor/unit and/or counseling patient: Coding Level of Care Code 88073 SUB INP/OBS CARE 2/35MIN Diagnoses Streptococcal bacteremia R78.81; B95.5 Aortic valve endocarditis I35.8 Septicemia A41.9 Right groin pain R10.31 History of intravenous drug abuse F19.11 Pain of right heel M79.671 Osteomyelitis of symphysis pubis M86.9 Pain of left calf M79.662
[2022-12-13] MEDS: HEPARIN SOD 5,000 UNIT/0.5 ML VIAL SQ SCH ×3 (05:36→21:28)
[2022-12-13] MEDS: BUPRENORPHINE/NALOXONE 8/2 MG TAB SL SCH ×2 (07:45→20:35)
--- NOTE | 2022-12-13 08:50 | Infectious Disease Progress Nt ---
Date of Service December 13, 2022 Assessment & Plan (1) Aortic valve endocarditis: (2) Streptococcal bacteremia: (3) Osteomyelitis of symphysis pubis: Plan 47-year-old male with pmh IVDU 30 years on suboxone presents with 2 wks of fever and fatigue . He has been feeling unwell for about 1 month with R groin pain , arthralgias. He was seen in Ed a few weeks ago and imaging showed a sm r groin hernia. He also noted back pain a few months ago after he pulled a muscle which has resolved. He denies WYMAN, rash, skin wounds, breakdown , abdominal pain, recent IV drug use, sob, change in Bowel or urine habits. He has poor dentition but no new dental pain. He has vague pelvic discomfort. On admission he is HDS , Labs noted for wbc 16.59, esr 91, crp 20.92> Lower extremity doppler w/o DVT, Cervical, thoracic, and lumbar spine without osteomyelitis or abscess.. Pelvis MRI w/ nonspecific marrow edema and enhancement within the pubic bones centered around the pubic symphysis. Findings may be on a degenerative/reactive basis however developing osteomyelitis could look similar. TTE shows a large highly mobile vegetation involving the AV , approximately 1.6* 0.7 cm, mild - moderate aortic regurgitation. BC with 4/4 bottles positive for strep anginosus. He was evaluated by Cardiology . given size of vegetation. They held off on referring him to surgery as no worsening valve function, abscess or symptoms of HF or emboli. ID consulted for AV endocarditis. 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 Source of bacteremia may be from poor dentit ion ( oral charles) less likely GI (no ab symptoms) ---> pelvic OM, Av endocarditis . He is a former IVDU, but denies active use. He denies skin trauma, recent IV injection. He has vague pelvic discomfort,without back pain. Spinal imaging w/o osteomyelitis or abscess. Dentition is poor but not pain or signs of acute infection.. Continue Ceftriaxone 2 g iv daily , will need to get at a monitored facility history of IVDU if PICC line OR can get daily infusion with PIV Follow up repeat BC to ensure clearance Dental Xray if BC persistently + , surgical eval monitor for sign of emboli Anticipate at least 6 weeks abx from sterile BC ID will continue to follow. Park Arredondo MD, MPH Infectious Disease [facility], ID Division Call [phone] with questions Admission and Anticipated Discharge Date Admission Date: December 07, 2022 Subjective This patient recommendation is based on a telemedicine consult request which was completed asynchronously through chart review and information provided by the primary physician. The patient was not seen or examined today. The evaluation is consultative in nature and all patient care and treatment decisions can either be accepted or rejected by the patient's primary hospital-based treating physician using their own independent medical judgment for their patient. Results & Data Vital Signs (Past 12 Hours) Vital Signs Temp Pulse Pulse Resp BP Pulse Ox O2 Del Method 12/13/22 07:43 36.8 C 75 18 120/63 97 Room Air 12/12/22 21:17 37.3 C 98 H 78 16 110/61 98 Room Air
--- NOTE | 2022-12-13 09:01 | Infectious Disease Progress Nt ---
Date of Service December 13, 2022 Assessment & Plan (1) Aortic valve endocarditis: (2) Streptococcal bacteremia: (3) Osteomyelitis of symphysis pubis: Plan 47-year-old male with pmh IVDU 30 years on suboxone presents with 2 wks of fever and fatigue . He has been feeling unwell for about 1 month with R groin pain , arthralgias. He was seen in Ed a few weeks ago and imaging showed a sm r groin hernia. He also noted back pain a few months ago after he pulled a muscle which has resolved. He denies WYMAN, rash, skin wounds, breakdown , abdominal pain, recent IV drug use, sob, change in Bowel or urine habits. He has poor dentition but no new dental pain. He has vague pelvic discomfort. On admission he is HDS , Labs noted for wbc 16.59, esr 91, crp 20.92> Lower extremity doppler w/o DVT, Cervical, thoracic, and lumbar spine without osteomyelitis or abscess.. Pelvis MRI w/ nonspecific marrow edema and enhancement within the pubic bones centered around the pubic symphysis. Findings may be on a degenerative/reactive basis however developing osteomyelitis could look similar. TTE shows a large highly mobile vegetation involving the AV , approximately 1.6* 0.7 cm, mild - moderate aortic regurgitation. BC with 4/4 bottles positive for strep anginosus. He was evaluated by Cardiology . given size of vegetation. They held off on referring him to surgery as no worsening valve function, abscess or symptoms of HF or emboli. ID consulted for AV endocarditis. 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 Source of bacteremia may be from poor dentition ( oral charles) less likely GI (no ab symptoms) ---> pelvic OM, Av endocarditis . He is a former IVDU, but denies active use. He denies skin trauma, recent IV injection. He has vague pelvic discomfort,without back pain. Spinal imaging w/o osteomyelitis or abscess. Dentition is poor but not pain or signs of acute infection.. Recommendations: -Continue Ceftriaxone 2 g iv daily. I anticipate parts counterman abx. Since he has a history of IVDU and on suboxone, he will complete therapy in a monitored setting/SNF, if PICC line placed. If unable to be placed in SNF, an option whic h would not include a picc/midline is daily IV infusion at an infusion center. If he is ok with getting daily PIVs ( unclear on logistics) . I discussed with team against sending home with line given history of IVDU, although remote. Hospitalist will d/w dependency case manager about his SNF options. -Follow up repeat BC -Dental Xray -if BC persistently + , surgical eval -Monitor for sign of emboli -Anticipate at least 6 weeks abx from sterile BC. EOT is 01/19/23 if 12/08 remains sterile. -he will need weekly cbc with diff, BMP, LFT, ESR, crp on abx therapy -Repeat echo and pelvic MRI 1-2 weeks post abx - Repeat BC 1 week post therapy, -Should establish care with local ID for continued management of infective endocarditis ID will sign off . Please call if any question or if pending BC + d/w hospitalist , Dr Shadi Arredondo MD, MPH Infectious Disease [facility], ID Division Call [phone] with questions Admission and Anticipated Discharge Date Admission Date: December 07, 2022 Subjective Subsequent visit was provided via telemedicine using two-way real-time interactive telecommunication between the patient and the telemedicine provider. For the duration of the visit, the provider was performing the assessment from a different facility than the patient. This includesuse of bluetooth stethoscope forauscultationperformed by the telepresenter that the telemedicine provider can hear if described in the physical exam. Beater Machine Operator contact information: Please call [facility] Call Center . (Phone Number For Physician Use Only) After establishing a telemedicine visit, patient was: Patient was verified with two unique identifiers Time Spent with Patient: Subsequent => 25 min He offers no complaints. He denies fever, ab or pelvic discomfort Repeat BC NGTD Physical Exam Physical Exam: gen- Nad neck - supple HEENT- poor dentition Card- RRR Lung No increased WOB Abd- soft, not tender MSK- ROM intact Neuro- AAO*3 Results & Data Vital Signs (Past 12 Hours) Vital Signs Temp Pulse Pulse Resp BP Pulse Ox O2 Del Method 12/13/22 07:43 36.8 C 75 18 120/63 97 Room Air 12/12/22 21:17 37.3 C 98 H 78 16 110/61 98 Room Air Laboratory Results Laboratory Results - last 48 hr 12/07/22 12/07/22 11:35 11:35 A. phagocytophilum DNA Negative Babesia microti DNA PCR Not Detected Diagnostic Findings Microbiology 12/07/22 11:42 Blood Aerobic Blood Culture - Final Streptococcus anginosus group 12/07/22 11:42 Blood Anaerobic Blood Culture - Final Streptococcus anginosus group 12/07/22 11:35 Blood Aerobic Blood Culture - Final Streptococcus anginosus group 12/07/22 11:35 Blood Anaerobic Blood Culture - Final Streptococcus anginosus group 12/08/22 11:44 Blood Aerobic Blood Culture - Preliminary No growth in Aerobic bottle after 48 hours. 12/08/22 11:44 Blood Anaerobic Blood Culture - Preliminary No growth in Anaerobic bottle after 48 hours. 12/08/22 11:37 Blood Aerobic Blood Culture - Preliminary No growth in Aerobic bottle after 48 hours. 12/08/22 11:37 Blood Anaerobic Blood Culture - Preliminary No growth in Anaerobic bottle after 48 hours. Venous Doppler Study 12/10/22 19:25 Exam(s): US VENOUS LEFT LOWER EXTREMITY EXAM: US Duplex Left Lower Extremity Veins CLINICAL HISTORY: Reason for exam: left calf pain; eval 4 DVT. TECHNIQUE: Real-time duplex ultrasound scan of the left lower extremity veins integrating B-mode two-dimensional vascular structure, Doppler spectral analysis, color flow Doppler imaging and compression. COMPARISON: None. FINDINGS: Deep veins: Unremarkable. No DVT in the visualized common femoral, femoral, proximal deep femoral or popliteal veins. The veins demonstrate normal color flow, are normally compressible, with normal phasic flow and/or augmentation response. Superficial veins: Unremarkable. No thrombus in the visualized great saphenous vein. Soft tissues: No acute findings. No popliteal cyst. IMPRESSION: No ultrasonographic evidence of deep venous thrombosis involving the left lower extremity. Electronically signed by: Varsha Watts MD 12/10/22 22:31 PM Medications Administered Home Medications Medication Instructions Recorded Confirmed Last Taken acetaminophen 500 mg tablet 500 mg PO Q6H PRN Pain 11/16/22 12/07/22 11/16/22 buprenorphine 8 mg-naloxone 2 mg 0.5 tab sublingual AMPM 11/16/22 12/07/22 12/07/22 sublingual tablet meloxicam 15 mg tablet 7.5 mg PO BID PRN pain #30 tabs 11/22/22 12/07/22 Unknown Centrum Men 1 tab PO DAILY 12/07/22 12/07/22 Unknown Active Medications Generic Name Dose Route Start Last Admin Trade Name Dannielle PRN Reason Stop Dose Admin Acetaminophen 650 mg 12/07/22 18:14 12/07/22 23:59 Acetaminophen 325 Mg Tab PO 01/06/23 18:13 650 mg Q4H PRN Administration pain/fever Buprenorphine/Naloxone 0.5 tab 12/07/22 21:00 12/13/22 07:45 Buprenorphine/Naloxone 8/2 Mg Tab SL 01/06/23 20:59 0.5 tab [facility] LIANET Administration Heparin Sodium (Porcine) 5,000 units 12/08/22 09:00 12/13/22 13:36 Heparin Sod 5,000 Unit/0.5 Ml Vial SQ 01/07/23 08:59 Not Given Q8 LIANET Ceftriaxone Sodium 2,000 mg/ 50 mls @ 100 mls/hr 12/08/22 15:00 12/13/22 16:00 Dextrose IV 12/22/22 14:59 Infused [facility] Infusion Protocol Ketorolac Tromethamine 30 mg 12/09/22 18:08 12/09/22 20:19 Ketorolac 30 Mg/Ml Vial IV 12/14/22 18:07 30 mg Q6H PRN Administration Pain
[2022-12-13] MEDS: cefTRIAXone SODIUM 2,000 MG in DEXTROSE 5 % MINI-B 50 ML IV SCH (15:14)
--- NOTE | 2022-12-13 18:03 | Hospitalist Progress Note ---
Date of Service December 13, 2022 Assessment & Plan (1) Streptococcal bacteremia: Plan: 05/16 blood cultures positive for streptococcal anginosus. source - poor dentition (this pathogen is oropharyngeal or GI in origin). Echo returned with AV vegetation; the vegetation is large. The left sided AV endocarditis would argue against IV drug abuse and he denies IV drugs as well. Repeat blood cultures from 12/08 cont to remain negative. Continue IV rocephin 2 g IV daily continue for at least 6 weeks from negative blood culture 12/08 Discussed with ID organizational effectiveness consultant today - advised against PICC because of high risk situation wrt prior IVDU, though remote Discussed with critical care paramedic Discussed with IV team - place US guided IV. Can last 28 days and be replaced in [facility] when necesary Plan for discharge tomorrow and daily AM ABX at [facility]. 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 Novoa in [place] for 12/26 AM labs ordered CBC CMP ESR CRP, ordered outpatient IV abx and same labs weekly for monitoring (2) Aortic valve endocarditis: Plan: Large AV vegetation seen on echo. Appreciate Dr Davey's consultation. Repeat echo 12/11 shows unchanged size of vegetation and no change in his aortic insufficiency. NO evidence of acute CHF. Fortunately no large septic emboli burden at this time. No neurological symptoms to suggest septic emboli to the brain. C-spine, T-spine, L-spine w/o obvious abscess or discitis although these were non-contrast MRIs. (3) Septicemia: Plan: 2nd to strep as above resolved (4) Right groin pain: Plan: Possible pelvic osteomyelitis - presume secondary to septic embolus On CT pelvis done earlier this month it showed "Sclerotic change is noted in the pubic symphysis." MRI pelvis w/ and w/o contrast with pubic symphysis changes that likely are osteomyelitis. This would cause the groin pain and ambulation difficulties. No psoas abscess seen. -ambulating, improved (5) History of intravenous drug abuse: Plan: Patient denied such at time of admission. None for 30 years Cont Suboxone 8/2mg -- 0.5 tablet BID. Prescribed by local ultrasound applications specialist. Tox screen negative at time of admission. (6) Pain of right heel: Plan: Again none on examination. Could not reproduce any pain. Radicular pain from L5-S1 herniated disc?? Follow carefully. Seems to have resolved (7) Osteomyelitis of symphysis pubis: Plan: highly suspected especially in light of #1, #2 Rx - IV abx pain control with toradol IV WBAT PT eval consider ortho eval for their opinion but suspect only Rx needed is the antibiotic course (8) Pain of left calf: Plan: doppler negative for LLE DVT toradol prn pain seems to have resolved Plan DVT proph - heparin 5000 TID Admission and Anticipated Discharge Date Admission Date: December 07, 2022 Subjective feeling okay. took it easy with not walking so much yesterday and this AM and groin/pubic pain is improved back to recent baseline. No cough or chest pain. No neurologic symptoms. Discussed discharge planning, IV placement, follow up etc Physical Exam Physical Exam: PHYSICAL EXAMINATION Last 24h vital signs reviewed, see documentation in flowsheet General: comfortable appearing, no distress, sitting on EOB HEENT: Normocephalic, atraumatic, pupils round and equal, sclerae anicteric, no conjunctival injection, moist mucus membranes Lungs: Normal respiratory effort. Clear to auscultation bilaterally. No RRW Heart: Regular rate and rhythm, no murmurs. No JVD Abdomen: Soft, nontender, nondistended. Bowel sounds present. Extremities: Warm, dry, well-perfused. No extremity edema. Neuro: Alert and oriented x 4, face symmetric, moves 4 extremities well Psych: Normal affect and behavior Results & Data Results & Data Vital Signs (Past 12 Hours) Vital Signs Temp Pulse Resp BP Pulse Ox O2 Del Method 12/13/22 15:27 37 C 68 18 127/67 98 Room Air 12/13/22 07:43 36.8 C 75 18 120/63 97 Room Air PG Care Time/CCT Total # of Minutes Spent Total Time Spent with Patient: Total time spent was 75 minutes today because of the significant coordination required to care for his complex and high risk condition as documented above Coding Level of Care Code 12863 SUB INP/OBS CARE 3/50MIN Diagnoses Streptococcal bacteremia R78.81; B95.5 Aortic valve endocarditis I35.8 Septicemia A41.9 Right groin pain R10.31 History of intravenous drug abuse F19.11 Pain of right heel M79.671 Osteomyelitis of symphysis pubis M86.9 Pain of left calf M79.662
[2022-12-14] MEDS: HEPARIN SOD 5,000 UNIT/0.5 ML VIAL SQ SCH ×2 (05:05→13:11)
[2022-12-14 07:06] LABS: Hemoglobin 10.2 g/dl (14.0-18.0); Mean Corpuscular Hemoglobin 28.3 pg (25.0-34.0); Mean Corpuscular Hgb Conc 32.9 g/dL (32.0-36.0); Mean Corpuscular Volume 86.1 fL (80.0-100.0); Platelet Count 213 K/uL (130-400); RDW Coefficient of Variation 12.4 % (11.5-14.5); RDW Standard Deviation 38.6 fL (36.4-46.3); White Blood Count 9.55 K/ul (4.8-10.8)
[2022-12-14 07:25] LABS: Albumin Globulin Ratio 0.8 (0.9-2); Albumin Level 3.3 gm/dl (3.4-5.0); BUN Creatinine Ratio 17.7 (10-20); Bilirubin,Total 0.3 mg/dl (0.2-1.0); C Reactive Protein 5.54 mg/dl (0-0.5); Creatinine Clr Calc Pharmacy 131.5 ml/min; Est GFR (African American) 122.2 ml/min; Est GFR (Non-African American) 105.4 ml/min; Globulin 3.9 gm/dl (2.5-4.0); Total Protein 7.2 gm/dl (6.0-8.3)
[2022-12-14] MEDS: BUPRENORPHINE/NALOXONE 8/2 MG TAB SL SCH (08:33)
[2022-12-14] MEDS: cefTRIAXone SODIUM 2,000 MG in DEXTROSE 5 % MINI-B 50 ML IV SCH (09:21)
--- NOTE | 2022-12-14 19:09 | Discharge Summary ---
Date of Service December 14, 2022 Admission HPI Per Admitting Provider Mr. 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 Pt reprots 1 month of fevers, night sweats, and feeling tired. Denies respiratory symptoms, diarrhea/abdominal pain, skin infection, skin lesions. Notes R foot has been achy 'but not too bad. 03/24 currently, can't relaly tell you when it started' Is not able to quantify when foot last felt normal on a days, weeks, months, or years scale and does not have any pain at bedside exam. R groin started to hurt 1 month ago. Initially got a little better, and noted a hernia was found on workup. This has felt 'ok' with no pain at rest and minimal pain when he pressure on it. Pt notes initially thought he had a blood clot but CTA did not show evidence of this. Low back pain after pulling a muscle in low R back 'so painful I can't walk'. This was 2 months ago, and got better but then recurred 1 month ago then went away after a week. Feels 'ok' at rest today and does n ot hurt at time of HPI, Endorses he takes Suboxone 0.5 8mg pill in AM and PM (1 pill, 8mg TDD). Has been on Suboxone for 6 months, previously used street/noneprescription suboxone. Denies IVDU in last 30 years. Denies chest pain/chest pressure. No SoB/dyspnea/cough. No tick bites or rashes. Social History: Vapes. Would like nicotine patch. Rare social etoh. Denies MM/RM use. Denies recent IVDU. 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 Clear to auscultation bilaterally. No RRW Heart: Regular rate and rhythm, diastolic murmur. No JVD Abdomen: Soft, nondistended. Extremities: Warm, dry, well-perfused. No extremity edema. Neuro: Alert and oriented x 4, face symmetric, moves 4 extremities well Psych: Normal affect and behavior Discharge Data Allergies Allergy/AdvReac Type Severity Reaction Status Date / Time No Known Allergies Allergy Verified 11/22/22 09:30 Consultations 12/07/22 15:35 ED Decision to Admit Stat 12/09/22 09:16 Consult Cardiology Routine 12/11/22 08:45 Consult Infectious Diseases Routine Ordered Studies 12/07/22 18:14 MRI Spine [MR cervical spine wo con] Urgent MRI Spine [MR lumbar spine wo con] Routine MRI Spine [MR thoracic spine wo con] Urgent 12/09/22 09:16 MR pelvis wo/w con Routine 12/10/22 19:25 US venous doppler LE LT Urgent Hospital Course (1) Streptococcal bacteremia: Aortic valve endocarditis due to streptococcus anginosus Echo returned with AV vegetation; the vegetation is large. He has aortic regurgitation but no heart failure. 4/4 blood cultures positive for streptococcus anginosus. It was draper-sensitive. source - likely poor dentition (this pathogen is oropharyngeal or GI in origin). The left sided AV endocarditis would argue against IV drug abuse and he denies IV drugs as well. 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 There was no evidence of other septic emboli. Noncontrast MRI of C/T/L spine was negative for abscess or discitis ID and cardiology consulted. Blood cultures from 12/08 were negative. Repeat TTE on 12/11 with no worsening of vegetation or aortic regurgitation. Treated with IV ceftriaxone 2g daily. Responding well to treatment. If he were to develop worsening AR / heart failure or ongoing septic emboli he would need cardiothoracic surgery consultation. Plan to complete at least 6 weeks of IV antibiotics from date of negative blood culture 12/08 (this would be 01/19) -he will get daily infusions at [facility] -ultrasound guided PIV was placed, this can last 28d and can be replaced when necessary in [facility] -ordered weekly CBC CMP ESR CRP for antibiotics monitoring these labs were last obtained 12/14 and there was significant improvement in ESR from 91 --> 71 and CRP from 20.9 --> 5.5 Follow ups: With PCP With cardiology including interval repeat Echo With ID Dr. 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 This would cause the groin pain and ambulation difficulties. No psoas abscess seen. -treatment is IV antibiotics as above -ambulating, improved (5) History of intravenous drug abuse: Patient denied such at time of admission. None for 30 years Cont Suboxone 8/2mg -- 0.5 tablet BID. Prescribed by local credit collection specialist. Tox screen negative at time of admission. (6) Pain of right heel: Again none on examination. Could not reproduce any pain. Radicular pain from L5-S1 herniated disc?? Resolved during admission (7) Osteomyelitis of symphysis pubis: (8) Pain of left calf: doppler negative for LLE DVT toradol prn pain has resolved Plan Total Time Total Time Spent Total Time Spent (In Minutes): 55 Discharge Plan Discharge Items Patient Disposition: Home - Self-Care Reason For Visit: FEVER UNKNOWN ORIGIN Discharge Diagnosis: Aortic valve endocarditis, pelvic bone osteomyelitis Condition on Discharge: Good Activity: Resume your previous activity Non-emergency contact: Primary Care Provider Call non-emergency contact if: you have any medication questions Follow-up/Referrals: Kenneth Santiago III, CRNP [Primary Care Provider] - Hossein Davey MD [Physician] - Pranav Novoa MD [Staff Physician] - 12/27/22 2:45 pm (Dr. Novoa PLEASE USE ADDRESS AND PHONE NUMBER BELOW [address] [address] Enter [facility] [phone] Check in at waiting room- last waiting room on the LEFT) Diet: Regular Addtl Attending Provider Instructions: IV antibiotics (ceftriaxone) every morning at the [facility] for 6 weeks for treatment of infection on aortic heart valve (endocarditis) This was caused by a type of mouth bacteria so you could have a dental infection - see a dentist as soon as possible for mouth exam and dental x-rays -if you do not have dental insurance coverage, you might be able to see a dentist through [facility] - information at [facility] Seek medical attention if you have recurrent fevers, change in level of consciousness, new / different pain or skin lesions, any neurological symptoms like numbness / weakness of extremities, problems with vision, trouble speaking / understanding, or trouble walking. Call your doctor if you develop significant diarrhea while on antibiotics. You may want to eat live culture yogurt every day or take a probiotic supplement (buy over the counter) to prevent antibiotic-associated diarrhea Pending Studies at Discharge: No Stand-Alone Forms: My [facility] Scicasts, Smoking Cessation Medications and DC Order Prescriptions: Continued meloxicam 15 mg tablet 7.5 mg PO BID PRN (Reason: pain) Qty: 30 3RF acetaminophen 500 mg Tablet 500 mg PO Q6H PRN (Reason: Pain) buprenorphine-naloxone 8-2 mg tablet, sublingual 0.5 tab SUBLINGUAL AMPM Patient Comments: per pt he takes half a tab in the am and half tab in the pm Centrum Men 1 tab PO DAILY Discharge Orders: Discharge Order (Routine); Ordered 12/14/22 Ordered By: Shannon Hsu Admission Data Admit Date/Time: 12/07/22 16:33 Attending Provider: Shannon Hsu Admit Provider: Dale Broussard Primary Care Provider: Kenneth Santiago III Other Providers: Dale Broussard; Hossein Davey; Pat Diehl; Rafael Kinsey; Marsha Subramainan; Nunu Tyler; Shyla Valle; Ruby Gill; Lilian Castillo; Park Arredondo; Shannon Anderson; Delia Millard Other Interventions: Discharge Summary Assessment (RN) Last Done: 12/14/22 13:37 Coding Level of Care Code 90031 INP/OBS DISCH >30 MIN Diagnoses Streptococcal bacteremia R78.81; B95.5 Aortic valve endocarditis I35.8 Septicemia A41.9 Right groin pain R10.31 History of intravenous drug abuse F19.11 Pain of right heel M79.671 Osteomyelitis of symphysis pubis M86.9 Pain of left calf M79.662
== END 2022-12-14 17:14 | disposition home or self-care (01) | DRG 871 ==
LOC: ED 09:41 → SUATTDRO 16:33 → EDINP 16:33 → 3E 12-08 00:51
DX: I74.8 Embolism and thrombosis of other arteries; M79.662 Pain in left lower leg; F11.20 Opioid dependence, uncomplicated; Z82.49 Family history of ischemic heart disease and other diseases of the circulatory system; K40.90 Unilateral inguinal hernia, without obstruction or gangrene, not specified as recurrent; M86.8X8 Other osteomyelitis, other site; Z87.891 Personal history of nicotine dependence; M25.571 Pain in right ankle and joints of right foot; A40.0 Sepsis due to streptococcus, group A; Z83.3 Family history of diabetes mellitus; M19.90 Unspecified osteoarthritis, unspecified site; B95.4 Other streptococcus as the cause of diseases classified elsewhere; I35.1 Nonrheumatic aortic (valve) insufficiency; I33.0 Acute and subacute infective endocarditis

== ENCOUNTER 2023-01-02 09:10 | Inpatient (IN) ==
[2023-01-02] MEDS ORDERED: ACETAMINOPHEN 1,000 MG/100 ML VIAL IV STA (09:35)
[2023-01-02] MEDS ORDERED: SODIUM CHLORIDE 0.9% 1,000 ML IV ONE ×2 (09:35→10:48)
--- NOTE | 2023-01-02 09:38 | Emergency Department Note ---
Impression & Plan SIRS (systemic inflammatory response syndrome), Elevated troponin, Endocarditis ED Provider Note Name: MARÍA JENKINS Age: 47 Sex: Male Arrives Via: Walk-In Informant: Patient ED Provider: Lew Soni MD Chief Complaint: Illness Impression: As per impressions above Medical Decision Makin-year-old gentleman arrives for evaluation of generalized illness and worsening body aches. Patient had gone to [facility] for his Rocephin infusion that he is on due to bacterial endocarditis. Noted to be tachycardic and febrile. Sent to ER for evaluation. Patient is borderline febrile, tachycardic, uncomfortable appearing. Laboratory work-up obtained. Initially declined second round of blood cultures but after laboratory findings I convinced him that second set at minimum was necessary. Once this was obtained vancomycin and Zosyn were given. Patient did receive 2 L normal saline bolus. He is not hypotensive and his lactic acid is normal. I do not feel he requires a 30/kg fluid bolus as he is otherwise well-hydrated after 2 L normal saline bolus here. His troponin is significantly elevated. Difficult to tell if this is due to sepsis, endocarditis or other acute etiology. Will need to be monitored further while hospitalized. Discussed with hospitalist who is comfortable with plan. Patient not significantly short of breath nor hypoxic we will hold off on CT imaging of the chest at this time. Triage/Nursing Notes reviewed by Me External Chart Review by me: Discharge summary 12/14/2022 reviewing care while hospitalized initially for endocarditis Differential:Sepsis, dehydration, electrolyte abnormality, resistant bacteria, pulmonary emboli, septic emboli, myocarditis, rhabdomyolysis, many other pathologies considered Vital Signs: reviewed and remarkable for febrile, tacky, hypertensive Interventions: Normal saline bolus 2 L IV, Zosyn IV, vancomycin IV, Tylenol IV Labs:ED labs Reviewed by me and remarkable for elevated CRP, elevated white blood cell count, elevated troponin EKG:As per my interpretation. Indication sepsis. Sinus tachycardia 101 bpm with a QTc of 5043. There is a bifascicular block. There are PACs noted. There are no recent EKGs for comparison Cardiac/Tele Monitoring: Cardiac Monitoring: An Order was placed for continuous cardiac monitoring. The monitor shows a rate of 105 with a sinus tach rhythm. Consults:Dr Ally MARSH Hospitalist Plan: Disposition:Hospitalization Condition: Good History of Present Illness: 47-year-old gentleman arrives for evaluation of fevers and chills. Patient notes he has not been feeling great since yesterday evening. This morning chills and feeling tremulous. He was seen at [facility] for IV antibiotics and was noted to be febrile and tachycardic. He was sent to the ER for further evaluation. Of note patient is currently being treated for aortic valve endocarditis along with osteomyelitis of the symphysis pubis. Patient notes he is getting pretty severe cramping in his legs primarily the lateral thighs. Patient has been on Rocephin 2 g IV daily for endocarditis. Past Medical History:Endocarditis, septicemia, IV drug abuse, substance abuse, osteomyelitis Home Medications:Tylenol Suboxone, Centrum, meloxicam, Rocephin IV Allergies:No known drug allergies Vitals:Blood Pressure: 146/72, Pulse 105, RR 6, T 37.7C, O2 97% on RA Physical Exam: GENERAL: Patient is tremulous appearing and in mild distress. RESPIRATORY: No dyspnea. Clear to auscultation and equal bilaterally. CARDIOVASCULAR: tachy.No murmur appreciated. GASTROINTESTINAL: Abdomen soft, non-tender, no peritonitis. BACK: No midline tenderness, no CVA tenderness EXTREMITIES: Normal motion all extremities, no cyanosis, no edema. PICC line right medial upper arm. NEUROLOGIC: Alert and oriented. No focal neurologic deficits appreciated SKIN: No rash, no jaundice, no diaphoresis. PSYCH: Appropriate though anxious GCS: 15 ED Course: Times/Reassessments: Patient is anxious though does appear to be feeling better. He declines any pain or anxiety medications. He is agreeable now to further blood draws and hospitalization. Lew Soni MD Past Med/Surg History Medical History Undescended left testicle Undescended testicle, unspecified Surgical History History of testicular surgery No significant past surgical history Family History Father Myocardial infarction, Onset Age: 53 Diabetes Denies family history of Ovarian cancer Prostate cancer Breast cancer Colorectal cancer Social History Smoking Status: Current every day smoker Tobacco Type: E-cigarettes / Vaping Age Started Using Tobacco: 14; packs per day: 1; Cigarettes Per Day: 20; Second Hand Exposure: Yes; Do You Dip or Chew Tobacco: No; Hx Alcohol Use: No Hx Substance Use: No Preferred Language: Yoruba Communication Ability: Effective Visual Impairment: No Limitations Hearing Ability: Normal Assistant County Attorney Required: No Beliefs That Will Affect Care: None marital status: Single Current Living Situation: Other Current Living Situation Comment: Roomates current occupational status: employed current occupation: [employer] How many Children do You have: 1 Feels Safe at Home: Yes Childhood Exposure to Second-Hand Smoke: Yes Diet: regular caffeine: Yes during the past year weight has: remained stable Dental Care, Regularly: No Physical Activity Frequency: Does not Exercise Seatbelt Use: always Sunscreen Use: Yes Assistive Devices: None Allergies Allergies Allergy/AdvReac Type Severity Reaction Status Date / Time No Known Allergies Allergy Verified 01/02/23 08:26 Home Meds Home Medications Medication Instructions Recorded Confirmed acetaminophen 500 mg tablet 500 mg PO Q6H PRN Pain 11/16/22 01/02/23 buprenorphine 8 mg-naloxone 2 mg 0.5 tab sublingual AMPM 11/16/22 01/02/23 sublingual tablet multivit,Ca,min-iron 8 mg-folic 1 tab PO DAILY ##0 12/07/22 01/02/23 acid 200 mcg-lycopene 600 mcg tablet (Centrum Men) Results & Data (ED) Vital Signs Vital Signs - 24 hr 01/02/23 09:19 01/02/23 09:38 01/02/23 09:44 Temperature 37.7 C H Temperature Source Oral Pulse Rate 114 H 105 H Pulse Rate [Apical] 97 H Respiratory Rate 16 18 Respiratory Effort / Characteristics Non-Labored Respiratory Depth Normal Blood Pressure 146/72 H Blood Pressure [Right Arm] 165/73 H Blood Pressure Mean 96 Blood Pressure Mean [Right Arm] 103 Blood Pressure Position [Right Arm] Sitting Pulse Oximetry 97 97 Oxygen Delivery Method Room Air Room Air Sepsis Recent Fever Within 48 Hours No Sepsis New/Unexplained Change in Mental Status N/A Sepsis Action Taken by Nursing No Action Required Laboratory Data 01/02/23 09:52 01/02/23 09:52 Lab Results 01/02/23 01/02/23 01/02/23 Range/Units 09:52 09:57 11:04 WBC 14.91 H (4.8-10.8) K/ul RBC 4.12 L (4.70-6.10) M/uL Hgb 11.4 L (14.0-18.0) g/dl Hct 33.7 L (42.0-52.0) % MCV 81.8 (80.0-100.0) fL MCH 27.7 (25.0-34.0) pg MCHC 33.8 (32.0-36.0) g/dL RDW Std Deviation 39.0 (36.4-46.3) fL RDW Coeff of Diamond 13.2 (11.5-14.5) % Plt Count 169 (130-400) K/uL MPV 9.4 (9.4-12.4) fL Immature Gran % (Auto) 0.4 % Neut % (Auto) 82.3 % Lymph % (Auto) 8.9 % [place] % (Auto) 8.0 % Eos % (Auto) 0.2 % Baso % (Auto) 0.2 % Neut # (Auto) 12.27 H (1.40-6.50) K/uL Lymph # (Auto) 1.32 (1.20-3.40) K/uL [place] # (Auto) 1.20 H (0.11-0.59) K/uL Eos # (Auto) 0.03 (0.00-0.50) K/uL Baso # (Auto) 0.03 (0.00-0.20) K/uL Immature Gran # (Auto) 0.06 (0.01-0.20) K/uL ESR 76 H (0-15) mm/hr Sodium 132 L (136-145) mmol/L Potassium 3.9 (3.5-5.1) mmol/L Chloride 98 (98-107) mmol/L Carbon Dioxide 25 (21-32) mmol/L Anion Gap 9 (3-11) BUN 9 (6-23) mg/dl Creatinine 0.86 (0.6-1.4) mg/dl Est Cr Clr Drug Dosing 120.8 ml/min Est GFR ( Amer) 118.0 ml/min Est GFR (Non-Af Amer) 101.8 ml/min BUN/Creatinine Ratio 10.5 (10-20) Glucose 126 H (70-99(Fasting)) mg/dl Lactate 1.1 (0.4-2.0) mmol/L Calcium 9.2 (8.6-10.3) mg/dl Magnesium 1.7 (1.7-2.4) mg/dl Total Bilirubin 0.6 (0.2-1.0) mg/dl Direct Bilirubin 0.2 (0-0.2) mg/dl AST 11 L (13-39) U/L ALT 10 (7-52) U/L Alkaline Phosphatase 74 (34-104) U/L Total Creatine Kinase 28 L (30-223) U/L Troponin I High Sens 89.6 H* 87.8 H* (0-20) pg/ml C-Reactive Protein 19.66 H (0-0.5) mg/dl Total Protein 7.8 (6.0-8.3) gm/dl Albumin 4.0 (3.4-5.0) gm/dl Procalcitonin < 0.05 (0-0.5) ng/ml Administered Medications Discontinued Medications Sodium Chloride (Nss) 1,000 mls @ 999 mls/hr IV .Q1H1M ONE Stop: 01/02/23 10:35 Last Infusion: 01/02/23 10:58 Dose: Infused Documented By: Admin: 01/02/23 09:54 Dose: 999 mls/hr Documented By: IGNACIO Acetaminophen (Ofirmev) 1,000 mg in 100 mls @ 400 mls/hr IV NOW STA Stop: 01/02/23 09:49 Last Infusion: 01/02/23 10:41 Dose: Infused Documented By: Admin: 01/02/23 09:53 Dose: 400 mls/hr Documented By: IGNACIO Sodium Chloride (Nss) 1,000 mls @ 999 mls/hr IV .Q1H1M ONE Stop: 01/02/23 11:48 Last Infusion: 01/02/23 14:04 Dose: Infused Documented By: Admin: 01/02/23 11:41 Dose: 999 mls/hr Documented By: AMANDA Piperacillin Sod/Tazobactam Sod (Zosyn) 4.5 gm in 100 mls @ 200 mls/hr IV NOW ONE Stop: 01/02/23 11:34 Last Infusion: 01/02/23 14:03 Dose: Infused Documented By: Admin: 01/02/23 13:32 Dose: 200 mls/hr Documented By: AMANDA Vancomycin HCl 1,750 mg/ (Sodium Chloride) 535 mls @ 200 mls/hr IV NOW ONE Stop: 01/02/23 13:45 Last Admin: 01/02/23 14:03 Dose: 200 mls/hr Documented By: AMANDA Imaging Data Radiologist's Impression: Chest X-Ray 01/02/23 09:36 SINGLE VIEW CHEST CLINICAL HISTORY: Fever FINDINGS: 2 AP, portable, upright chest radiographs are compared to study dated 12/07/2022. The cardiomediastinal silhouette is unremarkable. The lungs and pleural spaces are clear. No pneumothorax is seen. The bony thorax is grossly intact. IMPRESSION: No active disease in the chest. ACT 112: Negative or not required by law. Electronically signed by: Tylor Matta M.D. 01/02/2023 10:25 AM Duplex Scan Lower Extremity Artery 01/02/23 11:31 US arterial duplex LE LT CLINICAL HISTORY: endocarditits ?thrombus TECHNIQUE: Real-time grayscale and color and spectral Doppler ultrasound imaging of the left lower extremity arteries was performed. Measurements calculated based on NASCET criteria. COMPARISON: None available at the time of this dictation. FINDINGS/IMPRESSION: No arterial thrombus is seen. No increased velocities are seen. ACT 112: Negative or not required by law. Electronically signed by: Girma Minor M.D. 01/02/2023 1:33 PM Soft Tissue Ultrasound 01/02/23 11:31 US soft tissue ext ltd CLINICAL HISTORY: Left lateral thigh ?abscess. Left thigh redness. COMPARISON STUDY: None. FINDINGS: Real-time sonographic imaging of the left lateral thigh was performed with product support representative images submitted. There is skin thickening and increased echogenicity within the subcutaneous fat at the left lateral thigh. This favors a cellulitis. No fluid collections to suggest an abscess. IMPRESSION: 1. Skin thickening and increased echogenicity within the subcutaneous fat at the left lateral thigh which favors a cellulitis. 2. No abscess identified. ACT 112: Negative or not required by law. Electronically signed by: Ron Resendiz M.D. 01/02/2023 1:34 PM Discharge Plan Visit Data Chief Complaint: Hypertension Stated Complaint: HIGH TEMP AND HIGH HEART RATE ED Provider: Lew Soni Discharge Problem: SIRS (systemic inflammatory response syndrome), Elevated troponin, Endocarditis
[2023-01-02 10:17] LABS: Basophils # (auto) 0.03 K/uL (0.00-0.20); Basophils % (auto) 0.2 %; Eosinophils # (auto) 0.03 K/uL (0.00-0.50); Eosinophils % (auto) 0.2 %; Hematocrit (blood only) 33.7 % (42.0-52.0); Hemoglobin 11.4 g/dl (14.0-18.0); Immature Granulocytes # (auto) 0.06 K/uL (0.01-0.20); Immature Granulocytes % (auto) 0.4 %; Lymphocytes # (auto) 1.32 K/uL (1.20-3.40); Lymphocytes % (auto) 8.9 %; Mean Corpuscular Hemoglobin 27.7 pg (25.0-34.0); Mean Corpuscular Hgb Conc 33.8 g/dL (32.0-36.0); Mean Corpuscular Volume 81.8 fL (80.0-100.0); Mean Platelet Volume 9.4 fL (9.4-12.4); Neutrophils # (auto) 12.27 K/uL (1.40-6.50); Neutrophils % (auto) 82.3 %; Platelet Count 169 K/uL (130-400); RDW Coefficient of Variation 13.2 % (11.5-14.5); Red Blood Count 4.12 M/uL (4.70-6.10); White Blood Count 14.91 K/ul (4.8-10.8)
--- NOTE | 2023-01-02 10:26 | XRay Report ---
SINGLE VIEW CHEST CLINICAL HISTORY: Fever FINDINGS: 2 AP, portable, upright chest radiographs are compared to study dated 12/07/2022. The cardi omediastinal silhouette is unremarkable. The lungs and pleural spaces are clear. No pneumothorax is s een. The bony thorax is grossly intact. IMPRESSION: No active disease in the chest. ACT 112: Negative or not required by law. Electronically signed by: Tylor Matta M.D. 01/02/2023 10:25 AM
[2023-01-02 10:32] LABS: BUN Creatinine Ratio 10.5 (10-20); Bilirubin Direct 0.2 mg/dl (0-0.2); Bilirubin,Total 0.6 mg/dl (0.2-1.0); Calcium 9.2 mg/dl (8.6-10.3); Creatinine Clr Calc Pharmacy 120.8 ml/min; Est GFR (Non-African American) 101.8 ml/min; Magnesium 1.7 mg/dl (1.7-2.4); Potassium 3.9 mmol/L (3.5-5.1); Total Protein 7.8 gm/dl (6.0-8.3)
[2023-01-02 10:48] LABS: Troponin I High Sensitivity 89.6 pg/ml (0-20)
[2023-01-02] MEDS ORDERED: VANCOMYCIN HCL 1,750 MG in SODIUM CHLORIDE 0.9% 500 ML IV ONE (11:05)
[2023-01-02] MEDS ORDERED: PIPERACILLIN/TAZOBACTAM 4.5 GM/100 ML BAG IV ONE (11:05)
[2023-01-02] MEDS ORDERED: VANCOMYCIN CONSULT ACTIVE PRN (11:05)
--- NOTE | 2023-01-02 11:13 | History & Physical Report ---
Date of Service January 02, 2023 Assessment & Plan (1) Sepsis: Plan: Lactate 1.1, no hypotension therefore full 30ml/kg IV fluids bolus not given or necessary Sepsis despite outpatient treatment with Ceftriaxone 2g IV daily for pansensitive streptococcus anginosis group No diarrhea to suggest c. diff Cellulitis changes on left upper thigh - will get US arterial doppler to assess for arterial thrombus given aortic valve vegetation and US soft tissue to rule out underlying abscess ?new infection vs. 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 On ceftriaxone 2g IV since discharge. Will get repeat TTE. Consider cardiology consult for CARLY pending results of this. (3) Cellulitis: Plan: Left lateral thigh rash/cellulitis ?septic emboli vs. new process, suspect the former Vanc/Zosyn US soft tissue to assess for abscess (4) Osteomyelitis of symphysis pubis: Plan: Noted on MRI [12/09/2022] - "1. Nonspecific marrow edema and enhancement within the pubic bones centered around the pubic symphysis. Findings may be on a degenerative/reactive basis however developing osteomyelitis could appear similarly. Correlate clinically." Patient reports improvement of pain in this area. Patient notes improvement in this pelvic pain. (5) History of intravenous drug abuse: Plan: 30 years ago. Will get urine drug screen but low suspicion he is using drugs again. Infection was of left sided rather than right sided valves. Plan VTE Prophylaxis - deferred pending TTE Diet - regular Disposition - admit to PCU Admission and Anticipated Discharge Date Admission Date: January 02, 2023 History of Present Illness Chief Complaint: Fever Primary Care Provider: Kenneth Santiago, CATRACHITO, CHATO Shoaib Mcmanus is a 47 year old male who presents to the ER with fever. This is despite being on IV ceftriaxone through US guided IV for endocarditis. He reports 2 days of bilateral lateral thigh pain with left > right. Intermittent right 4th toe pain. Generalized myalgias starting yesterday. He was seen at the medical treatment unit today for his ceftriaxone IV dose and was noted to be tachycardia with a fever therefore was sent to the ER for further evaluation. He reports 2 days o This is on a background of recent admission to [facility] from December 07 - November 2nd 2023 due to pansensitive streptococcus anginosis infective endocarditis. TTE showed large highly mobile vegetation involving the aortic valve measuring 1.6 x 0.7 cm with mild to moderate regurgitation. MRI pelvis showed concerning osteomyelitis changes which was thought to be from septic emboli. He underwent MRI cervical, thoracic, lumbar spine without a source of infection seen. He was evaluated by cardiology and not referred to surgery as blood cultures cleared, valve function was not worsening, no evidence of heart failure of valve abscess. He was seen by [facility] ID Connect Dr Arredondo and recommended supervisor intermediates ceftriaxone 2g IV daily. He reports a significant history of IV drug use 30 years ago - heroin. No prior endocarditis or recurrent infections then. He denies any current alcohol use, IVDU or smoking but he does vape daily. Allergies Allergy/AdvReac Type Severity Reaction Status Date / Time No Known Allergies Allergy Verified 01/02/23 08:26 Home Medications Medication Instructions Recorded Confirmed Type acetaminophen 500 mg tablet 500 mg PO Q6H PRN Pain 11/16/22 01/02/23 History buprenorphine 8 mg-naloxone 2 mg 0.5 tab sublingual AMPM 11/16/22 01/02/23 History sublingual tablet multivit,Ca,min-iron 8 mg-folic 1 tab PO DAILY ##0 12/07/22 01/02/23 History acid 200 mcg-lycopene 600 mcg tablet (Centrum Men) Past Med/Surg History Medical History Undescended left testicle Undescended testicle, unspecified Surgical History History of testicular surgery No significant past surgical history Family History Father Myocardial infarction, Onset Age: 53 Diabetes Denies family history of Ovarian cancer Prostate cancer Breast cancer Colorectal cancer Social History Smoking Status: Current every day smoker Tobacco Type: E-cigarettes / Vaping Age Started Using Tobacco: 14; packs per day: 1; Cigarettes Per Day: 20; Second Hand Exposure: Yes; Do You Dip or Chew Tobacco: No; Hx Alcohol Use: No Hx Substance Use: No Preferred Language: Lithuanian Communication Ability: Effective Visual Impairment: No Limitations Hearing Ability: Normal 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 Required: No Beliefs That Will Affect Care: None marital status: Single Current Living Situation: Other Current Living Situation Comment: Roomates current occupational status: employed 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 How many Children do You have: 1 Feels Safe at Home: Yes Childhood Exposure to Second-Hand Smoke: Yes Diet: regular caffeine: Yes during the past year weight has: remained stable Dental Care, Regularly: No Physical Activity Frequency: Does not Exercise Seatbelt Use: always Sunscreen Use: Yes Assistive Devices: None Review of Systems 2 Review of Systems: All systems reviewed & are unremarkable except as noted in HPI & below Physical Exam 2 Physical Exam: Constitutional: WD/WN, vitals as above Eyes: PERRL, conjunctivae normal, anicteric sclerae ENMT: external ear and nose normal, oropharynx normal Respiratory: normal respiratory effort, lungs clear to auscultation Cardiovascular: Rate/Rhythm: regular rate and regular rhythm Heart Sounds: + murmur (diastolic 2/6 LLSB) Extremities: normal capillary refill; no calf tenderness and no pedal edema Gastrointestinal (Abdomen): normal bowel sounds, soft, nontender, no hepatosplenomegaly Musculoskeletal: no cyanosis or clubbing, extremities motor strength 5/5 Skin: Erythema and swelling of left lateral thigh (see picture above) Neurologic: moves all extremities and awake; not confused Psychiatric: A+Ox3, euthymic affect Genitourinary: no CVA tenderness Results & Data Results & Data Vital Signs (Past 12 Hours) Vital Signs Temp Pulse Pulse Resp BP BP Pulse Ox 01/02/23 09:44 97 H 18 165/73 H 97 01/02/23 09:38 105 H 01/02/23 09:19 37.7 C H 114 H 16 146/72 H 97 O2 Del Method 01/02/23 09:44 Room Air 01/02/23 09:38 01/02/23 09:19 Room Air Laboratory Results Abnormal lab results 01/02/23 Range/Units 09:52 WBC 14.91 H (4.8-10.8) K/ul RBC 4.12 L (4.70-6.10) M/uL Hgb 11.4 L (14.0-18.0) g/dl Hct 33.7 L (42.0-52.0) % Neut # (Auto) 12.27 H (1.40-6.50) K/uL Mora # (Auto) 1.20 H (0.11-0.59) K/uL Sodium 132 L (136-145) mmol/L Glucose 126 H (70-99(Fasting)) mg/dl AST 11 L (13-39) U/L Total Creatine Kinase 28 L (30-223) U/L Troponin I High Sens 89.6 H* (0-20) pg/ml Diagnostic Findings SINGLE VIEW CHEST CLINICAL HISTORY: Fever FINDINGS: 2 AP, portable, upright chest radiographs are compared to study dated 12/07/2022. The cardiomediastinal silhouette is unremarkable. The lungs and pleural spaces are clear. No pneumothorax is seen. The bony thorax is grossly intact. IMPRESSION: No active disease in the chest. Medications Administered ER Medications Given: Normal saline 1000ml bolus Zosyn4.5g IV Vancomycin 1750mg IV NSS 1000ml bolus Acetaminophen 1000mg IV ECG Rate (beats per minute): 101 Rhythm: sinus tachycardia Findings: + other (left posterior fascicular block), + PVC and + RBBB Comparison ECG Date: from (December 07, 2022) Change: the following changes noted (OVCs are now present) Code Status & VTE Plan Code Status Full VTE Prophylaxis Plan VTE Prophylaxis will be ordered: No PG Care Time/CCT Total # of Minutes Spent Total Time Spent with Patient: Total time spent is greater than 50% in coordination of care (as documented) at patient's floor/unit and/or counseling patient: Coding Level of Care Code 28390 INT INP/OBS CARE 3/75MIN Diagnoses Sepsis with acute organ dysfunction without septic shock, due to unspecified organism, unspecified organ dysfunction type A41.9; R65.20 Sepsis type: sepsis due to unspecified organism Sepsis acute organ dysfunction status: with acute organ dysfunction Severe sepsis acute organ dysfunction type: unspecified Severe sepsis shock status: without septic shock Aortic valve endocarditis I35.8 Cellulitis of left lower extremity L03.116 Site of cellulitis: extremity Site of cellulitis of extremity: lower extremity Laterality: left Osteomyelitis of symphysis pubis M86.9 History of intravenous drug abuse F19.11 (1) Sepsis Sepsis type: sepsis due to unspecified organism Sepsis acute organ dysfunction status: with acute organ dysfunction Severe sepsis acute organ dysfunction type: unspecified Severe sepsis shock status: without septic shock Qualified Code(s): A41.9 - Sepsis, unspecified organism; R65.20 - Severe sepsis without septic shock (3) Cellulitis Site of cellulitis: extremity Site of cellulitis of extremity: lower extremity Laterality: left Qualified Code(s): L03.116 - Cellulitis of left lower limb
[2023-01-02 11:41] LABS: C Reactive Protein 19.66 mg/dl (0-0.5)
[2023-01-02 13:02] LABS: Troponin I High Sensitivity 87.8 pg/ml (0-20)
--- NOTE | 2023-01-02 13:35 | Ultrasound Report ---
US arterial duplex LE LT CLINICAL HISTORY: endocarditits ?thrombus TECHNIQUE: Real-time grayscale and color and spectral Doppler ultrasound imaging of the left lower ex tremity arteries was performed. Measurements calculated based on NASCET criteria. COMPARISON: None available at the time of this dictation. FINDINGS/IMPRESSION: No arterial thrombus is seen. No increased velocities are seen. ACT 112: Negative or not required by law. Electronically signed by: Girma Minor M.D. 01/02/2023 1:33 PM
--- NOTE | 2023-01-02 13:36 | Ultrasound Report ---
US soft tissue ext ltd CLINICAL HISTORY: Left lateral thigh ?abscess. Left thigh redness. COMPARISON STUDY: None. FINDINGS: Real-time sonographic imaging of the left lateral thigh was performed with applications sales representative werner haley submitted. There is skin thickening and increased echogenicity within the subcutaneous fat at t he left lateral thigh. This favors a cellulitis. No fluid collections to suggest an abscess. IMPRESSION: 1. Skin thickening and increased echogenicity within the subcutaneous fat at the left lateral thigh w hich favors a cellulitis. 2. No abscess identified. ACT 112: Negative or not required by law. Electronically signed by: Ron Resendiz M.D. 01/02/2023 1:34 PM
[2023-01-02 15:05] LABS: Adenovirus PCR Not Detected (NotDetected); Bordetella parapertussis PCR Not Detected (NotDetected); Bordetella pertussis PCR Not Detected (NotDetected); Chlamydia pneumoniae PCR Not Detected (NotDetected); Coronavirus 229E PCR Not Detected (NotDetected); Coronavirus CoV-2 (COVID19)PCR Not Detected (NotDetected); Coronavirus HKU1 PCR Not Detected (NotDetected); Coronavirus NL63 PCR Not Detected (NotDetected); Coronavirus OC43PCR Not Detected (NotDetected); Human Metapneumovirus PCR Not Detected (NotDetected); Influenza A PCR Not Detected (NotDetected); Influenza B PCR Not Detected (NotDetected); Mycoplasma pneumoniae PCR Not Detected (NotDetected); Parainfluenza Virus 1 PCR Not Detected (NotDetected); Parainfluenza Virus 2 PCR Not Detected (NotDetected); Parainfluenza Virus 3 PCR Not Detected (NotDetected); Parainfluenza Virus 4 PCR Not Detected (NotDetected); Respiratory Syncytial VirusPCR Not Detected (NotDetected); Rhinovirus/Enterovirus PCR Not Detected (NotDetected)
[2023-01-02] MEDS: BUPRENORPHINE/NALOXONE 8/2 MG TAB SL SCH ×2 (17:21→21:35)
[2023-01-02] MEDS: PIPERACILLIN/TAZOBACTAM 4.5 GM in DEXTROSE 5% MINI-B 100 ML IV SCH (18:56)
--- NOTE | 2023-01-02 19:07 | XCELERA ---
[id number]
[2023-01-02] MEDS: ACETAMINOPHEN 325 MG TAB PO PRN (19:17)
[2023-01-02] MEDS ORDERED: VANCOMYCIN HCL 1,500 MG in SODIUM CHLORIDE 0.9% 500 ML IV SCH (22:00)
[2023-01-03] MEDS: ACETAMINOPHEN 325 MG TAB PO PRN ×2 (00:20→06:14)
[2023-01-03] MEDS: PIPERACILLIN/TAZOBACTAM 4.5 GM in DEXTROSE 5% MINI-B 100 ML IV SCH (03:47)
[2023-01-03 07:46] VITALS: BP 148/60; PULSE 87; RESP 17; TEMP 99.1; O2SAT 99
[2023-01-03] MEDS: BUPRENORPHINE/NALOXONE 8/2 MG TAB SL SCH (08:06)
[2023-01-03 08:10] LABS: Appearance Urine Clear (Clear); Bacteria Urine Automated Negative (Negative); Bilirubin Urine Negative (Negative); Blood Urine 2+ (Negative); Cast Urine Automated 0 /lpf (0-5); Color Urine Yellow; Epithelial Cell Urine Auto 0-5 /lpf (0-5); Glucose Urine UA Negative (Negative); Ketones Urine Negative (Negative); Leukocyte Esterase Urine Negative (Negative); Nitrite Urine Negative (Negative); Protein Urine Negative (Negative); RBC Urine Automated 0-4 /hpf (0-4); Specific Gravity Urine 1.009 (1.000-1.030); Urobilinogen Urine Negative (Negative); pH Urine 5.5 (4.5-7.5)
[2023-01-03 08:23] LABS: Creatinine Clr Calc Pharmacy 131.5 ml/min; Est GFR (African American) 122.2 ml/min; Est GFR (Non-African American) 105.4 ml/min
[2023-01-03 08:36] LABS: Amphetamines+Metham, Urine Neg (Neg); Barbiturates, Urine Neg (Neg); Benzodiazepine, Urine Neg (Neg); Cocaine, Urine Neg (Neg); MDMA (Ecstacy), Urine Neg (Neg); Methadone, Urine Neg (Neg); Opiate, Urine Neg (Neg); Phencyclidine, Urine Neg (Neg)
--- NOTE | 2023-01-03 10:01 | Discharge Summary ---
Date of Service January 03, 2023 Admission HPI Per Admitting Provider Shoaib Mcmanus is a 47 year old male who presents to the ER with fever. This is despite being on IV ceftriaxone through US guided IV for endocarditis. He reports 2 days of bilateral lateral thigh pain with left > right. Intermittent right 4th toe pain. Generalized myalgias starting yesterday. He was seen at the medical treatment unit today for his ceftriaxone IV dose and was noted to be tachycardia with a fever therefore was sent to the ER for further evaluation. He reports 2 days o This is on a background of recent admission to [facility] from December 07 - December 14 2022 due to pansensitive streptococcus anginosis infective endocarditis. TTE showed large highly mobile vegetation involving the aortic valve measuring 1.6 x 0.7 cm with mild to moderate regurgitation. MRI pelvis showed concerning osteomyelitis changes which was thought to be from septic emboli. He underwent MRI cervical, thoracic, lumbar spine without a source of infection seen. He was evaluated by cardiology and not referred to surgery as blood cultures cleared, valve function was not worsening, no evidence of heart failure of valve abscess. 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 He reports a significant history of IV drug use 30 years ago - heroin. No prior endocarditis or recurrent infections then. He denies any current alcohol use, IVDU or smoking but he does vape daily. Principal Diagnosis sepsis Discharge Exam did not see before transfer Discharge Data Allergies Allergy/AdvReac Type Severity Reaction Status Date / Time No Known Allergies Allergy Verified 01/02/23 08:26 Consultations 01/02/23 11:14 ED Decision to Admit Stat 01/02/23 22:32 Burn CD for patient Stat Ordered Studies 01/02/23 11:31 US arterial duplex LE LT Stat US soft tissue ext ltd Stat Hospital Course (1) Sepsis: Lactate 1.1, no hypotension therefore full 30ml/kg IV fluids bolus not given or necessary Sepsis despite outpatient treatment with Ceftriaxone 2g IV daily for pansensitive streptococcus anginosis group No diarrhea to suggest c. diff Cellulitis changes on left upper thigh - will get US arterial doppler to assess for arterial thrombus given aortic valve vegetation and US soft tissue to rule out underlying abscess ?new infection vs. 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 On ceftriaxone 2g IV since discharge. Will get repeat TTE. Consider cardiology consult for CARLY pending results of this. (3) Cellulitis: Left lateral thigh rash/cellulitis ?septic emboli vs. new process, suspect the former Vanc/Zosyn US soft tissue to assess for abscess (4) Osteomyelitis of symphysis pubis: Noted on MRI [12/09/2022] - "1. Nonspecific marrow edema and enhancement within the pubic bones centered around the pubic symphysis. Findings may be on a degenerative/reactive basis however developing osteomyelitis could appear similarly. Correlate clinically." Patient reports improvement of pain in this area. Patient notes improvement in this pelvic pain. (5) History of intravenous drug abuse: 30 years ago. Will get urine drug screen but low suspicion he is using drugs again. Infection was of left sided rather than right sided valves. Plan VTE Prophylaxis - deferred pending TTE Diet - regular Disposition - admit to PCU Total Time Total Time Spent Total Time Spent (In Minutes): 10 Discharge Plan Discharge Items Patient Disposition: Transfer Acute [facility] Reason For Visit: ENDOCARDITIS, FEVER Discharge Diagnosis: Infective endocarditis Severe aortic regurgitation Activity: Resume your previous activity Non-emergency contact: Primary Care Provider Call non-emergency contact if: you have any medication questions and your symptoms worsen Follow-up/Referrals: Kenneth Santiago III, CRNP [Primary Care Provider] - Diet: Regular Addtl Attending Provider Instructions: Shoaib Mcmanus is a 47 year old male who presents to the ER with fever. This is despite being on IV ceftriaxone through US guided IV for endocarditis. He reports 2 days of bilateral lateral thigh pain with left > right. Intermittent right 4th toe pain. Generalized myalgias starting yesterday. He was seen at the medical treatment unit today for his ceftriaxone IV dose and was noted to be tachycardia with a fever therefore was sent to the ER for further evaluation. He reports 2 days o This is on a background of recent admission to [facility] from December 07 - December 14 2022 due to pansensitive streptococcus anginosis infective endocarditis. TTE showed large highly mobile vegetation involving the aortic valve measuring 1.6 x 0.7 cm with mild to moderate regurgitation. MRI pelvis showed concerning osteomyelitis changes which was thought to be from septic emboli. He underwent MRI cervical, thoracic, lumbar spine without a source of infection seen. He was evaluated by cardiology and not referred to surgery as blood cultures cleared, valve function was not worsening, no evidence of heart failure of valve abscess. He was seen by [facility] Dr Arredondo and recommended fdc ceftriaxone 2g IV daily. He reports a significant history of IV drug use 30 years ago - heroin. No prior endocarditis or recurrent infections then. He denies any current alcohol use, IVDU or smoking but he does vape daily. Today his WBC, CRP, ESR all increased. Blood cultures x2 taken. Started empirically on vancomycin and Zosyn. US soft tissue and arterial doppler did not show abscess or arterial thrombus of his left leg. Echocardiogram showed progression of his aortic regurgitation and he was discussed with [facility] for transfer to be evaluated by cardiothoracic surgery. Note medical list below is his home medications. Please see separate scanned sheet for inpatient medications. Pending Studies at Discharge: Yes (Blood cultures) Stand-Alone Forms: My [facility] Skilled Items Patient informed of condition?: Yes DNR: No Discharge Level of Care: Other Communicable Disease: No Discharge Prognosis: Stable Lines: US Guided Peripheral IV Urinary Catheter: No Medications and DC Order Prescriptions: Continued acetaminophen 500 mg Tablet 500 mg PO Q6H PRN (Reason: Pain) buprenorphine-naloxone 8-2 mg tablet, sublingual 0.5 tab SUBLINGUAL AMPM Patient Comments: per pt he takes half a tab in the am and half tab in the pm Centrum Men 8 mg iron- 200 mcg-600 mcg Tablet 1 tab PO DAILY Qty: 0 Discharge Orders: Discharge Order (Routine); Ordered 01/02/23 Ordered By: Eyal Canales Admission Data Admit Date/Time: 01/02/23 11:48 Attending Provider: Gianna Carmona Admit Provider: Eyal Canales Primary Care Provider: Kenneth Santiago III Other Providers: Eyal Canales Coding Level of Care Code 89022 IN/OBS DISCH 30 MIN/LESS Diagnoses Sepsis with acute organ dysfunction without septic shock, due to unspecified organism, unspecified organ dysfunction type A41.9; R65.20 Sepsis type: sepsis due to unspecified organism Sepsis acute organ dysfunction status: with acute organ dysfunction Severe sepsis acute organ dysfunction type: unspecified Severe sepsis shock status: without septic shock Aortic valve endocarditis I35.8 Cellulitis of left lower extremity L03.116 Site of cellulitis: extremity Site of cellulitis of extremity: lower extremity Laterality: left Osteomyelitis of symphysis pubis M86.9 History of intravenous drug abuse F19.11 Time Spent (min) 10
--- NOTE | 2023-01-04 06:28 | Electrocardiogram Report ---
Test Reason : Blood Pressure : / mmHG Vent. Rate : 101 BPM Atrial Rate : 101 BPM P-R Int : 146 ms QRS Dur : 142 ms QT Int : 388 ms P-R-T Axes : 076 135 054 degrees QTc Int : 503 ms Sinus tachycardia with occasional Premature ventricular complexes Possible Left atrial enlargement Right bundle branch block Left posterior fascicular block Bifascicular block Abnormal ECG When compared with ECG of 07-DEC-2022 11:38, Premature ventricular complexes are now Present Confirmed by Cesar Chavez ([id number]) on 01/04/2023 6:27:41 AM Referred By: REFERRED SELF Confirmed By:Cesar Chavez
== END 2023-01-03 08:53 | disposition short-term general hospital (02) | DRG 871 ==
LOC: ED 09:10 → SUATTDRO 11:48 → EDINP 11:48 → 2E 15:42
DX: I35.1 Nonrheumatic aortic (valve) insufficiency; M86.9 Osteomyelitis, unspecified; F17.290 Nicotine dependence, other tobacco product, uncomplicated; L03.116 Cellulitis of left lower limb; A40.8 Other streptococcal sepsis; I33.0 Acute and subacute infective endocarditis; R65.20 Severe sepsis without septic shock; F19.11 Other psychoactive substance abuse, in remission